=== PATIENT | female | born 1945 | race Caucasian/White ===

== ENCOUNTER → 2019-08-14 | Outpatient (CLI) | payer MEDICARE, OTHER ==
--- NOTE | 2019-08-14 17:36 | Diagnostic Imaging Report ---
INDICATION: Back pain, lifting injury. FINDINGS: There is very slight superior endplate stature loss and concavity at the L2 level. This appeared sclerotic and well marginated and is probably chronic but I have no priors. No convincing evidence for an acute fracture. 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 IMPRESSION: 1. Slight L2 superior endplate compression, likely chronic given the sclerosis but correlate with level of pain. If warranted, further evaluation with nonemergent MRI may be of benefit. 2. Degenerative changes to the endplates, discs, and facets noted with no listhesis. Dictated by: Dictated on workstation # [id number]
== END ==
LOC: RAD FS 13:49
PROVIDERS: ATTEND Chiropractor
DX: S39.92XA Unspecified injury of lower back, initial encounter (principal); M47.816 Spondylosis without myelopathy or radiculopathy, lumbar region; M51.36 Other intervertebral disc degeneration, lumbar region; X50.9XXA Other and unspecified overexertion or strenuous movements or postures, initial encounter
CPT/HCPCS: 72100

== ENCOUNTER → 2021-07-18 | Outpatient (CLI) | payer MEDICARE, OTHER | LOC: LAB FS 10:00 | PROVIDERS: ATTEND Emergency Medicine | DX: Z01.812 Encounter for preprocedural laboratory examination (principal); Z20.822 Contact with and (suspected) exposure to COVID-19 | CPT/HCPCS: 87636 ==

== ENCOUNTER 2022-06-18 13:24 | Observation (INO) | payer MEDICARE, OTHER ==
[~2022-06-18] VITALS: Ht 165.1 cm; Wt 68.3 kg
[2022-06-18 14:03] LABS: BASOPHILS % (AUTO) 1 % (0-10); EOSINOPHILS # (AUTO) 0.1 10^3/uL (0.0-0.3); EOSINOPHILS % (AUTO) 2 % (0-10); HEMATOCRIT 35 % (35-52); HEMOGLOBIN 11.8 g/dL (11.5-16.0); LYMPHOCYTES % (AUTO) 31 % (12-44); MEAN CORPUSCULAR HEMOGLOBIN 29 pg (25-34); MEAN CORPUSCULAR HGB CONC 34 g/dL (32-36); MEAN CORPUSCULAR VOLUME 86 fL (80-99); MEAN PLATELET VOLUME 9.9 fL (9.0-12.2); MONOCYTES # (AUTO) 0.5 10^3/uL (0.0-1.0); MONOCYTES % (AUTO) 8 % (0-12); NEUTROPHILS # (AUTO) 3.7 10^3/uL (1.8-7.8); NEUTROPHILS % (AUTO) 58 % (42-75); PLATELET COUNT 239 10^3/uL (130-400); WHITE BLOOD COUNT 6.3 10^3/uL (4.3-11.0)
--- NOTE | 2022-06-18 14:15 | Diagnostic Imaging Report ---
CHEST 1 VIEW AP/PA ONLY Indication: Dizziness Comparison: None available. Findings: No focal airspace disease in the visualized lungs. Please note that the posterior lower lobes are poorly evaluated by portable radiography. No pleural effusion or pneumothorax. Normal cardiomediastinal silhouette. Impression: 1. No acute cardiopulmonary process by portable radiography. Dictated by: Dictated on workstation # [id number]
--- NOTE | 2022-06-18 14:16 | Diagnostic Imaging Report ---
EXAMINATION: CT head without contrast. TECHNIQUE: Multiple contiguous axial images were obtained through the brain without the use of intravenous contrast. All CT scans use one or more of the following dose optimizing techniques: Automated exposure control, MA and/or KvP adjustment based on patient size and exam type or iterative reconstruction. HISTORY: Confusion. Weakness. Concern for acute ischemia. Expressive aphasia. COMPARISON: None available. FINDINGS: No large acute territorial ischemia, mass, or hemorrhage. No midline shift or mass effect. The ventricles, cortical sulci, and basilar cisterns are patent and unremarkable. The orbits are normal. Paranasal sinuses are normal. Mastoid air cells are clear. No soft tissue abnormality is seen. No osseous lesions or fractures are seen. IMPRESSION: 1. No large acute territorial ischemia, mass, or hemorrhage. Dictated by: Dictated on workstation # [id number]
[2022-06-18 14:19] LABS: PROTHROMBIN TIME PATIENT 13.6 SEC (12.2-14.7)
[2022-06-18 14:23] LABS: ALKALINE PHOSPHATASE 80 U/L (40-136); BILIRUBIN,TOTAL 0.3 MG/DL (0.1-1.0); BUN/CREATININE RATIO 20; CALCIUM 9.4 MG/DL (8.5-10.1); CARBON DIOXIDE 21 MMOL/L (21-32); CHLORIDE 98 MMOL/L (98-107); CREATININE SERUM 0.75 MG/DL (0.60-1.30); GFR ESTIMATED 81; GLUCOSE 103 MG/DL (70-105); POTASSIUM 4.2 MMOL/L (3.6-5.0); SODIUM 131 MMOL/L (135-145)
[2022-06-18 14:24] LABS: ALANINE AMINOTRANSFERASE 10 U/L (0-55); ALBUMIN 4.3 GM/DL (3.2-4.5)
[2022-06-18] MEDS ORDERED: CATHETER FLUSH 10 ML SYR IV PRN (14:45)
[2022-06-18] MEDS ORDERED: IOHEXOL 350 MG/ML 100 ML (OMNIPAQUE 350) VIAL IV ONE (14:45)
[2022-06-18] MEDS ORDERED: HOLD METFORMIN - RECEIVED CONTRAST 20 ML VIAL IV SCH (14:45)
[2022-06-18] MEDS ORDERED: NS 100 ML (IVPB) BAG IV ONE (14:45)
--- NOTE | 2022-06-18 14:50 | ED General ---
General Chief Complaint: Neuro-Stroke Like Symptoms Stated Complaint: DIZZINESS; NAUSEA Nursing Triage Note: Patient presents to the ED with c/o dizziness and nausea. States she was sitting at home when she suddenly felt like the room was tilting. Reports she became very nauseated at that time. Source of Information: Patient, EMS, Spouse History of Present Illness Date Seen by Provider: Jun 18, 2022 Time Seen by Provider: 13:37 Initial Comments 76-year-old female presenting by EMS from home. She states that suddenly at 1130 this morning she felt like the room suddenly tilted and she was dizzy. She became nauseated and had vomiting. She was feeling like she was having trouble thinking and trying to find her words. EMS was activated as they were concerned that she might have a stroke. She states that she is supposed to be taking a baby aspirin daily but has not routinely been taking it. She periodically forgets. She has recently had hip surgery in January and then had compression fractures of her spine after that so she has been doing physical therapy for her back and lower legs. She denies any recent head trauma or surgery since January. Timing/Duration: 1-3 Hours Severity: Severe Modifying Factors: worse with Movement Associated Systoms: No Chest Pain, No Cough, No Diaphoresis, No Fever/Chills, No Headaches, No Loss of Appetite, No Malaise; Nausea/Vomiting; No Rash, No Se izure, No Shortness of Air, No Syncope, No Weakness Allergies and Home Medications Allergies Coded Allergies: No Known Drug Allergies (Unverified , 06/18/22) Patient Home Medication List Home Medication List Reviewed: Yes Review of Systems Review of Systems Constitutional: No chills, No diaphoresis; dizziness; No fever EENTM: No ear discharge, No hearing loss, No ear pain, No blurred vision, No vision loss, No nose congestion, No throat pain Respiratory: No cough, No short of breath Cardiovascular: No chest pain, No edema, No palpitations Gastrointestinal: No abdominal pain, No constipation, No diarrhea; nausea, vomiting Genitourinary: No dysuria Musculoskeletal: no symptoms reported Skin: No rash Psychiatric/Neurological: See HPI, Anxiety; Denies Headache Hematologic/Lymphatic: Denies Blood Clots Past Ouvkmwx-Ygtmki-Uaydck Hx Patient Social History Tobacco Use?: No Substance use?: No Alcohol Use?: No Pt feels they are or have been: No Immunizations Up To Date First/Initial COVID19 Vaccinat: Yes Second COVID19 Vaccination Jose: Yes COVID19 Vaccine Brass Polisher: Michael Past Medical History Surgery/Hospitalization HX: HTN; Osteoporosis; Back surgery, hip surgery Surgeries: Yes Orthopedic Physical Exam Vital Signs Vital Signs - First Documented 06/18/22 13:27 Temp 36.4 Pulse 61 Resp 15 B/P (MAP) 156/60 (92) Pulse Ox 100 O2 Delivery Room Air Capillary Refill : Less Than 3 Seconds Height, Weight, BMI Height: '" Weight: lbs. oz. kg; 24.00 BMI Method: General Appearance: Anxious HEENT: PERRL/EOMI, TMs Normal, Normal ENT Inspection, Pharynx Normal, Moist Mucous Membranes Neck: Full Range of Motion, Normal Inspection, Non Tender, Supple; No Carotid Bruit Respiratory: Chest Non Tender, Lungs Clear, Normal Breath Sounds, No Accessory Muscle Use, No Respiratory Distress Cardiovascular: Regular Rate, Rhythm, No Murmur, Normal Peripheral Pulses Gastrointestinal: Normal Bowel Sounds, No Pulsatile Mass, Non Tender, Soft Rectal: Deferred Back: No CVA Tenderness Extremity: Normal Capillary Refill, Normal Inspection, No Calf Tenderness, No Pedal Edema Neurologic/Psychiatric: Alert, Oriented x3, No Motor/Sensory Deficits, correctional supervisor II- XII Norm as Tested, Other (Patient appears anxious and is tearful at times saying that she is upset that she is having to think so hard to try and speak) Skin: Normal Color, Warm/Dry Progress/Results/Core Measures Suspected Sepsis SIRS Temperature: Pulse: 61 Respiratory Rate: 15 Laboratory Tests 06/18/22 13:13: White Blood Count 6.3 Blood Pressure 156 /60 Mean: 92 Laboratory Tests 06/18/22 13:13: Creatinine 0.75, INR Comment 1.0, Platelet Count 239, Total Bilirubin 0.3 Results/Orders Lab Results Laboratory Tests Test 06/18/22 13:13 06/18/22 13:57 06/18/22 15:35 Range/Units White Blood Count 6.3 4.3-11.0 10^3/uL Red Blood Count 4.04 3.80-5.11 10^6/uL Hemoglobin 11.8 11.5-16.0 g/dL Hematocrit 35 35-52 % Mean Corpuscular Volume 86 80-99 fL Mean Corpuscular Hemoglobin 29 25-34 pg Mean Corpuscular Hemoglobin Concent 34 32-36 g/dL Red Cell Distribution Width 13.8 10.0-14.5 % Platelet Count 239 130-400 10^3/uL Mean Platelet Volume 9.9 9.0-12.2 fL Immature Granulocyte % (Auto) 0 % Neutrophils (%) (Auto) 58 42-75 % Lymphocytes (%) (Auto) 31 12-44 % Monocytes (%) (Auto) 8 0-12 % Eosinophils (%) (Auto) 2 0-10 % Basophils (%) (Auto) 1 0-10 % Neutrophils # (Auto) 3.7 1.8-7.8 10^3/uL Lymphocytes # (Auto) 2.0 1.0-4.0 10^3/uL Monocytes # (Auto) 0.5 0.0-1.0 10^3/uL Eosinophils # (Auto) 0.1 0.0-0.3 10^3/uL Basophils # (Auto) 0.0 0.0-0.1 10^3/uL Immature Granulocyte # (Auto) 0.0 0.0-0.1 10^3/uL Prothrombin Time 13.6 12.2-14.7 SEC INR Comment 1.0 0.8-1.4 Activated Partial Thromboplast Time 30 24-35 SEC Sodium Level 131 L 135-145 MMOL/L Potassium Level 4.2 3.6-5.0 MMOL/L Chloride Level 98 98-107 MMOL/L Carbon Dioxide Level 21 21-32 MMOL/L Anion Gap 12 5-14 MMOL/L Blood Urea Nitrogen 15 7-18 MG/DL Creatinine 0.75 0.60-1.30 MG/DL Estimat Glomerular Filtration Rate 81 BUN/Creatinine Ratio 20 Glucose Level 103 70-105 MG/DL Calcium Level 9.4 8.5-10.1 MG/DL Corrected Calcium 9.2 8.5-10.1 MG/DL Magnesium Level 1.7 1.6-2.4 MG/DL Total Bilirubin 0.3 0.1-1.0 MG/DL Aspartate Amino Transf (AST/SGOT) 19 5-34 U/L Alanine Aminotransferase (ALT/SGPT) 10 0-55 U/L Alkaline Phosphatase 80 40-136 U/L Troponin I < 0.30 <0.30 NG/ML Total Protein 7.0 6.4-8.2 GM/DL Albumin 4.3 3.2-4.5 GM/DL Influenza Type A (RT-PCR) Not Detected Not Detecte Influenza Type B (RT-PCR) Not Detected Not Detecte SARS-CoV-2 RNA (RT-PCR) Not Detected Not Detecte Urine Color YELLOW Urine Clarity CLEAR Urine pH 6.0 5-9 Urine Specific [place] <=1.005 1.016-1.022 Urine Protein NEGATIVE NEGATIVE Urine Glucose (UA) NEGATIVE NEGATIVE Urine Ketones TRACE H NEGATIVE Urine Nitrite NEGATIVE NEGATIVE Urine Bilirubin NEGATIVE NEGATIVE Urine Urobilinogen 0.2 < = 1.0 MG/DL Urine Leukocyte Esterase NEGATIVE NEGATIVE Urine RBC (Auto) NEGATIVE NEGATIVE Urine RBC NONE /HPF Urine WBC RARE /HPF Urine Squamous Epithelial Cells 0-2 /HPF Urine Crystals NONE /LPF Urine Bacteria TRACE /HPF Urine Casts PRESENT /LPF Urine Hyaline Casts 0-2 H /LPF Urine Mucus SMALL H /LPF Urine Culture Indicated NO My Orders Orders - FLOR DIAZ MD Cbc With Automated Diff (06/18/22 13:53) Protime With Inr (06/18/22 13:53) Partial Thromboplastin Time (06/18/22 13:53) Comprehensive Metabolic Panel (06/18/22 13:53) Troponin I Fs (06/18/22 13:53) Ua Culture If Indicated (06/18/22 13:53) Chest 1 View Ap/Pa Only (06/18/22 13:53) Ekg Tracing (06/18/22 13:53) Accucheck Stat ONCE (06/18/22 13:53) Ed Iv/Invasive Line Start (06/18/22 13:53) Vital Signs Stroke Patient Q15M (06/18/22 13:53) Ct Head Wo-R/O Stroke (06/18/22 13:53) O2 (06/18/22 13:53) Intake & Output 06,14,22 (06/18/22 13:53) Monitor-Rhythm Ecg Trace Only (06/18/22 13:53) Dysphagia Screening Tool Q10MX1 (06/18/22 13:53) Magnesium (06/18/22 13:55) Covid 19 Inhouse Test (06/18/22 13:55) Influenza A And B By Pcr (06/18/22 13:55) Isolation Central Supply Req (06/18/22 13:55) Ct Angio Head/Neck (06/18/22 14:28) Iohexol Injection (Omnipaque 350 Mg/Ml 1 (06/18/22 14:45) Received Contrast (Hold Metformin- Contr (06/18/22 14:45) Sodium Chloride Flush (Catheter Flush Sy (06/18/22 14:45) Ns (Ivpb) (Sodium Chloride 0.9% Ivpb Bag (06/18/22 14:45) Ed Admission (Communication) (06/18/22 16:19) Aspirin Chewable Tablet (Baby Aspirin Ch (06/18/22 16:32) Clopidogrel Tablet (Plavix Tablet) (06/18/22 16:32) Medications Given in ED Current Medications Medications Dose Ordered Sig/Nafisa Route Start Time Stop Time Status Last Admin Dose Admin Iohexol 75 ml ONCE ONCE IV 06/18/22 14:45 06/18/22 14:46 DC 06/18/22 14:48 75 ML Sodium Chloride 10 ml NEEDED PRN IV 06/18/22 14:45 06/18/22 14:48 10 ML Sodium Chloride 100 ml ONCE ONCE IV 06/18/22 14:45 06/18/22 14:46 DC 06/18/22 14:48 80 ML Vital Signs/I&O 06/18/22 06/18/22 13:27 17:06 Temp 36.4 36.4 Pulse 61 67 Resp 15 16 B/P (MAP) 156/60 (92) 148/63 Pulse Ox 100 99 O2 Delivery Room Air Room Air Capillary Refill : Less Than 3 Seconds Blood Pressure Mean: 92 Progress Note #1: Progress Note Perform NIH scale on my initial exam of the patient. She scored 8 on the NIH stroke scale however 6 of these points were more due to general weakness they were not localizing. She had drift in bilateral arms which gave her 1 off each side and she had resistance to gravity in bilateral lower extremities due to back pain with trying to lift her legs. This gave her 2 off on each side. She had 1 off for expressive aphasia and 1 off for slight dysarthria. Sent for CT head without contrast as well as obtain labs, ECG and urine. Progress Note #2: Time: 14:28 Progress Note After returning from CT scan she did report that her dizziness was better but was still having trouble thinking and trying to find words. CT angiogram was ordered as her creatinine was okay and the CT head did not show acute intracranial hemorrhage or process. Progress Note #3: Time: 15:[address] angiogram of head and neck did not show any bleeding or large vessel occlusion. Call placed to Neurology to speak to the stroke neurologist for consult. They will call back once the neurologist is on the line. 1538 d/w Dr. Catie Chen, houseperson neurologist for stroke at [facility]. Reviewed results and findings of the patient. Dr. Chne recommended offering tPA if the patient was having debilitating aphasia and was not improving. If the patient did not want tPA or she was improving and not qualifying for tPA then at least admit for stroke risk stratification work up with MRI, Echocardiogram, Telemetry, Lipids, HgbA1c. D/w patient and she was speaking more clearly and dizziness improved so did not qualify for tPA. Will admit locally for testing and check with Dr. Bobby, houseperson provider for Dr. Triana. On recommendation of Dr. Chen will start on aspirin and plavix. 1618 d/w Dr. Bobby and she accepted pt for [facility] to have monitoring and get testing. She will place queued orders for the patient. By time patient was being admitted her NIHSS was improved as she was not having the dysarthria and the expressive aphasia was improved as well. ECG Initial ECG Impression Date: Jun 18, 2022 Initial ECG Impression Time: 13:45 Initial ECG Rate: 59 Initial ECG Rhythm: Normal Sinus Initial ECG Comparisson: No Previous ECG Available Comment Normal sinus rhythm with a heart rate of [address] interval [address] elevation. There is minimal ST depression. QT interval 439 ms with a QTc interval 437 ms. There is no prior tracing available for comparison. Diagnostic Imaging Diagonstic Imaging: Xray Plain Films/CT/US/NM/MRI: chest Comments [facility] [place] [place] NAME: IGNACIA HORTON MED REC#: [id number] PT STATUS: REG ER : 1945 PHYSICIAN: FLOR DIAZ MD ADMIT DATE: 06/18/22/ER FS Signed Date of Exam:06/18/22 CHEST 1 VIEW AP/PA ONLY CHEST 1 VIEW AP/PA ONLY Indication: Dizziness Comparison: None available. Findings: No focal airspace disease in the visualized lungs. Please note that the posterior lower lobes are poorly evaluated by portable radiography. No pleural effusion or pneumothorax. Normal cardiomediastinal silhouette. Impression: 1. No acute cardiopulmonary process by portable radiography. Dictated by: Dictated on workstation # [id number] Dict: 06/18/221412 Trans: 06/18/221412 [facility] Interpreted by: CORTNEY LAGUNAS MD Electronically signed by: CORTNEY LAGUNAS MD 06/18/221412 Diagonstic Imaging: CT Plain Films/CT/US/NM/MRI: head Comments [facility] [place] [place] NAME: IGNACIA HORTON [facility] REC#: [id number] PT STATUS: REG ER : 1945 PHYSICIAN: FLOR DIAZ MD ADMIT DATE: 06/18/22/ER FS Signed Date of Exam:06/18/22 CT HEAD WO-R/O STROKE EXAMINATION: CT head without contrast. TECHNIQUE: Multiple contiguous axial images were obtained through the brain without the use of intravenous contrast. All CT scans use one or more of the following dose optimizing techniques: Automated exposure control, MA and/or KvP adjustment based on patient size and exam type or iterative reconstruction. HISTORY: Confusion. Weakness. Concern for acute ischemia. Expressive aphasia. COMPARISON: None available. FINDINGS: No large acute territorial ischemia, mass, or hemorrhage. No midline shift or mass effect. The ventricles, cortical sulci, and basilar cisterns are patent and unremarkable. The orbits are normal. Paranasal sinuses are normal. Mastoid air cells are clear. No soft tissue abnormality is seen. No osseous lesions or fractures are seen. IMPRESSION: 1. No large acute territorial ischemia, mass, or hemorrhage. Dictated by: Dictated on workstation # [id number] Dict: 06/18/221412 Trans: 06/18/22 142 Interpreted by: FARHAD LYNCH DO Electronically signed by: FARHAD LYNCH DO 06/18/22 1423 Reviewed: Reviewed by Me Diagonstic Imaging: CT (angiogram) Plain Films/CT/US/NM/MRI: head (and neck) Comments [facility] [place] NAME: IGNACIA HORTON [facility] REC#: [id number] PT STATUS: REG ER : 1945 PHYSICIAN: FLOR DIAZ MD ADMIT DATE: 06/18/22/ER FS Signed Date of Exam:06/18/22 CT ANGIO HEAD/NECK PROCEDURE: CT angiography of the head and CT angiography of the neck with and without contrast. TECHNIQUE: Contiguous noncontrast images were obtained from the skull base through the vertex. After intravenous contrast administration, helical CT angiography of the neck was performed. Source data was reformatted into 3D MIP projections. Delayed postcontrast acquisition was also obtained. Auto Exposure Controls were utilized during the CT exam to meet ALARA standards for radiation dose reduction. INDICATION: Dizziness, expressive aphasia. COMPARISON: Noncontrast CT head from earlier same day. FINDINGS: Aortic arch is normal without dissection. The great vessels of the aortic arch are widely patent centrally. The bilateral common carotid arteries are normal. There is no stenosis of the proximal internal carotid arteries per NASCET criteria. The cervical divisions of the internal carotid arteries are patent without features of dissection or stenosis. Vertebral artery origins are patent. Vertebral arteries are codominant and patent throughout the neck. The T4 division of the left vertebral artery has bifurcated appearance. Airway is widely patent. No prevertebral soft tissue fluid. Thyroid is normal. Lung apices are clear. No cervical lymphadenopathy. The bilateral distal internal carotid arteries are patent without dissection or terminal aneurysm. The M1 and M2 divisions of the middle cerebral arteries are patent. The basilar artery is patent without terminal aneurysm. Posterior cerebral arteries are patent centrally. Anterior cerebral arteries are also patent. No anterior communicating artery aneurysm. The visualized portions of the dural venous sinuses are patent. The sagittal sinus is not included in the [id number]. IMPRESSION: 1. No intracranial large vessel occlusion or saccular aneurysm. 2. No high-grade stenosis or occlusion within the major neck arteries. 3. Visualized dural venous sinuses are patent. Dictated by: Dictated on workstation # [id number] Dict: 06/18/22 1503 Trans: 06/18/22 1525 [id number] Interpreted by: CORTNEY LAGUNAS MD Electronically signed by: CORTNEY LAGUNAS MD 06/18/22 1525 Departure Communication (Admissions) Time/Spoke to Admitting Phy: 16:18 d/w Dr. Bobby about admit for stroke/tia work up as recommended by Dr. Chen, stroke neurologist at [facility]. She recommends updating Cholesterol labs, HGBA1c and get MRI and Echocardiogram as well as monitor on telemetry Impression Primary Impression: Expressive aphasia Additional Impression: Dizziness Disposition: 30 STILL A PATIENT Condition: Stable Admissions Decision to Admit Reason: Admit from ER (General) Decision to Admit/Date: Jun 18, 2022 Time/Decision to Admit Time: 16:18 Departure-Patient Inst. Referrals: ARIA TRIANA MD (PCP) Primary Care Physician NIH Stroke Scale NIH Stroke Scale NIH : Select: Initial Level of Consciousness: 0=Alert Level of Consciousness-Questio: 0=Answers both month/age LOC Commands: 0=Performs both tasks Gaze: 0=Normal Visual Ramirez: 0=No visual loss Facial Movement (Facial Paresi: 0=Normal symmetrical mnt Motor Function-Arms Right: 1=Drift Motor Function-Arms Left: 1=Drift Motor Function-Legs Right: 2=Some effort/gravity (due to back pain from compression fracture January 30) Motor Function-Legs Left: 2=Some effort/gravity (due to back pain from compression fracture January 30) Limb Ataxia: 0=Absent Sensory: 0=Normal:no loss Best Language: 1=Mild to moderat aphasia Dysarthria: 1=Mild to moderate loss Extinction & Inattention: 0=No abnormality NIH Stroke Scale Score: 8 FLOR DIAZ MD Jun 18, 2022 14:50
--- NOTE | 2022-06-18 15:23 | Diagnostic Imaging Report ---
PROCEDURE: CT angiography of the head and CT angiography of the neck with and without contrast. TECHNIQUE: Contiguous noncontrast images were obtained from the skull base through the vertex. After intravenous contrast administration, helical CT angiography of the neck was performed. Source data was reformatted into 3D MIP projections. Delayed postcontrast acquisition was also obtained. Auto Exposure Controls were utilized during the CT exam to meet ALARA standards for radiation dose reduction. INDICATION: Dizziness, expressive aphasia. COMPARISON: Noncontrast CT head from earlier same day. FINDINGS: Aortic arch is normal without dissection. The great vessels of the aortic arch are widely patent centrally. The bilateral common carotid arteries are normal. There is no stenosis of the proximal internal carotid arteries per NASCET criteria. The cervical divisions of the internal carotid arteries are patent without features of dissection or stenosis. Vertebral artery origins are patent. Vertebral arteries are codominant and patent throughout the neck. The T4 division of the left vertebral artery has bifurcated appearance. Airway is widely patent. No prevertebral soft tissue fluid. Thyroid is normal. Lung apices are clear. No cervical lymphadenopathy. The bilateral distal internal carotid arteries are patent without dissection or terminal aneurysm. The M1 and M2 divisions of the middle cerebral arteries are patent. The basilar artery is patent without terminal aneurysm. Posterior cerebral arteries are patent centrally. Anterior cerebral arteries are also patent. No anterior communicating artery aneurysm. The visualized portions of the dural venous sinuses are patent. The sagittal sinus is not included in the [id number]. IMPRESSION: 1. No intracranial large vessel occlusion or saccular aneurysm. 2. No high-grade stenosis or occlusion within the major neck arteries. 3. Visualized dural venous sinuses are patent. Dictated by: Dictated on workstation # [id number]
[2022-06-18 16:02] LABS: BILIRUBIN,URINE NEGATIVE (NEGATIVE); CLARITY,URINE CLEAR; COLOR,URINE YELLOW; GLUCOSE, URINE (UA) NEGATIVE (NEGATIVE); KETONES,URINE TRACE (NEGATIVE); LEUKOCYTE ESTERASE ,URINE NEGATIVE (NEGATIVE); NITRITE,URINE NEGATIVE (NEGATIVE); PROTEIN,URINE NEGATIVE (NEGATIVE)
[2022-06-18 16:11] LABS: BACTERIA,URINE TRACE /HPF; HYALINE CASTS, URINE 0-2 /LPF; SQUAMOUS EPITHELIAL CELL,UR 0-2 /HPF; WBC,URINE RARE /HPF
[2022-06-18] MEDS ORDERED: CLOPIDOGREL 75 MG (PLAVIX) TABLET PO STA (16:32)
[2022-06-18] MEDS ORDERED: ASPIRIN 81 MG CHEW (CHILDREN'S ASA) PO STA (16:32)
[2022-06-18] MEDS ORDERED: diphenhydrAMINE 25 MG TAB (BENADRYL) PO PRN (18:15)
[2022-06-18] MEDS ORDERED: ONDANSETRON 4 MG (ZOFRAN) ORAL DISSOLVE TAB PO PRN (18:15)
[2022-06-18] MEDS ORDERED: ACETAMINOPHEN 325 MG TABLET PO PRN ×2 (18:15)
[2022-06-18] MEDS ORDERED: polyethylene glycoL POWDER 17 GM (MIRALAX) PACK PO PRN (18:15)
[2022-06-18] MEDS ORDERED: morphine INJ 4 MG/ML 1 ML (VIAL/SYRINGE) IV PRN (18:15)
[2022-06-18] MEDS ORDERED: BISACODYL 10 MG SUPP (DULCOLAX) PR PRN ×2 (18:15)
[2022-06-18] MEDS ORDERED: MELATONIN 3 MG TABLET PO PRN (18:15)
[2022-06-18] MEDS ORDERED: diphenhydrAMINE 50 MG/ML INJ (BENADRYL) IVP PRN (18:15)
[2022-06-18] MEDS ORDERED: ANTACID SUSP 30 ML UDC (MYLANTA) PO PRN (18:15)
[2022-06-18] MEDS ORDERED: ONDANSETRON 4 MG/2 ML (SDV) Z0FRAN IV PRN (18:15)
[2022-06-18 18:25] VITALS: BP 156/60
[2022-06-18] MEDS ORDERED: RT-ALBUTEROL SULF 2.5 MG/3 ML PRE-MIX VIAL INH PRN (18:30)
[2022-06-18 18:45] LABS: TRIGLYCERIDES 71 MG/DL (<150); VLDL CHOLESTEROL 14 MG/DL (5-40)
[2022-06-18 18:50] LABS: CHOLESTEROL 266 MG/DL (< 200)
[2022-06-18 18:51] LABS: HDL CHOLESTEROL 84 MG/DL (40-60)
[2022-06-18] MEDS: ENOXAPARIN 40 MG/0.4 ML (LOVENOX) SYR SC SCH (18:51)
[2022-06-18 19:31] VITALS: BP 144/67
[2022-06-18] MEDS: DOCUSATE SODIUM 100 MG (COLACE) CAP PO SCH (22:36)
[2022-06-19] VITALS (7 sets, daily range): BP systolic 108–151; BP diastolic 53–82
[2022-06-19 06:10] LABS: ALBUMIN 3.9 GM/DL (3.2-4.5)
[2022-06-19 06:11] LABS: POTASSIUM 4.8 MMOL/L (3.6-5.0)
[2022-06-19 06:12] LABS: CALCIUM 9.9 MG/DL (8.5-10.1)
[2022-06-19 06:13] LABS: TOTAL PROTEIN 6.8 GM/DL (6.4-8.2)
[2022-06-19 06:15] LABS: BASOPHILS % (AUTO) 1 % (0-10); BILIRUBIN,TOTAL 0.6 MG/DL (0.1-1.0); EOSINOPHILS # (AUTO) 0.2 10^3/uL (0.0-0.3); EOSINOPHILS % (AUTO) 3 % (0-10); HEMATOCRIT 36 % (35-52); HEMOGLOBIN 12.2 g/dL (11.5-16.0); LYMPHOCYTES # (AUTO) 1.6 10^3/uL (1.0-4.0); LYMPHOCYTES % (AUTO) 34 % (12-44); MEAN CORPUSCULAR HEMOGLOBIN 29 pg (25-34); MEAN CORPUSCULAR HGB CONC 34 g/dL (32-36); MEAN CORPUSCULAR VOLUME 86 fL (80-99); MEAN PLATELET VOLUME 9.8 fL (9.0-12.2); MONOCYTES # (AUTO) 0.5 10^3/uL (0.0-1.0); MONOCYTES % (AUTO) 10 % (0-12); NEUTROPHILS # (AUTO) 2.5 10^3/uL (1.8-7.8); NEUTROPHILS % (AUTO) 53 % (42-75); PLATELET COUNT 243 10^3/uL (130-400); WHITE BLOOD COUNT 4.8 10^3/uL (4.3-11.0)
[2022-06-19 06:17] LABS: CREATININE SERUM 0.81 MG/DL (0.60-1.30)
--- NOTE | 2022-06-19 08:31 | Diagnostic Imaging Report ---
PROCEDURE: US carotid duplex, bilateral. INDICATION: 68-year-old female, dizziness, expressive aphasia. History of hypertension. TECHNIQUE: Multiple real-time grayscale images were obtained over the carotid arteries in various projections bilaterally. Additional spectral analysis and color Doppler and Duplex images were also obtained. CORRELATION: None FINDINGS: Color images demonstrate mild scattered atherosclerotic plaque to be present. Right carotid circulation: The right common carotid artery is normal in course and caliber. The right internal carotid artery is patent. No hemodynamically significant stenosis is present at this time. Right external carotid artery is patent. Left carotid circulation: The left common carotid artery is normal in course and caliber. The left internal carotid artery is patent. No hemodynamically significant stenosis is present at this time. Left external carotid artery is patent. Antegrade flow in the bilateral vertebral arteries. IMPRESSION: 1. No sonographic evidence to suggest a hemodynamically significant stenosis of the internal carotid arteries at this time. Parameters based on the consensus panel Beaulieu-Scale and Doppler ultrasound criteria published September 2003, Radiology, Volume 229. DOPPLER (peak systolic velocity M/S Right Left CCA 0.96 0.85 ICA Proximal 0.67 0.99 ICA Mid 0.79 0.76 ICA Distal 1.05 0.74 RATIO 1.10 1.17 ECA 0.92 0.71 VERT 0.69 0.64 IMPRESSION: 1. No sonographic evidence to suggest a hemodynamically significant stenosis of the internal carotid arteries at this time. Parameters based on the consensus panel Beaulieu-Scale and Doppler ultrasound criteria published September 2003, Radiology, Volume 229. Dictated by: Dictated on workstation # [id number]
[2022-06-19] MEDS: ASPIRIN 325 MG (5 GR) TABLET PO SCH (09:05)
[2022-06-19] MEDS: DOCUSATE SODIUM 100 MG (COLACE) CAP PO SCH ×2 (09:05→20:14)
[2022-06-19] MEDS: CLOPIDOGREL 75 MG (PLAVIX) TABLET PO SCH (09:05)
--- NOTE | 2022-06-19 09:58 | Speech Therapy Progress Note ---
Therapy Progress Note Speech pathology received the consultation and reviewed the patient's chart. The clinician attempted the evaluation at 0945. Per patient, she is not experiencing any speech, language, or cognitive difficulties at this time and states she has returned to her baseline function. Additionally, the patient denied any difficulties with her oropharyngeal swallow. The patient was encouraged to contact the RN if speech, language, cognitive, or swallowing difficulties retur n. At this time, speech pathology will sign off. KARTHIK GRAF Jun 19, 2022 09:58
--- NOTE | 2022-06-19 10:19 | Physical Therapy Evaluation ---
PT Evaluation-General Medical Diagnosis Admission Date Jun 18, 2022 at 17:57 Medical Diagnosis: dizziness/expressive aphasia Onset Date: Jun 18, 2022 Therapy Diagnosis Therapy Diagnosis: debility/weakness Precautions Precautions/Isolations: Fall Prevention, Standard Precautions Referral Physician: Diamante Reason for Referral: Evaluation/Treatment Medical History Pertinent Medical History: HTN Additional Medical History back and left hip surgery Reviewed History: Yes Social History Home: Single Level Current Living Status: Spouse Entry Into Home: Stairs With Railing PT Steps Into Home: 6 Prior Prior Level of Function SCALE: Activities may be completed with or without assistive devices. 7-Sneajbklue-octjpdz completes the activity by him/herself with no assistance from a helper. 5-Set-up or Clean-up Assistance-helper sets up or cleans up; patient completes activity. [place] assists only prior to or following the activity. 4-Supervision or Touching Assistance-helper provides verbal cues and/or touching/steadying and/or contact guard assistance as patient completes activity. Assistance may be provided throughout the activity or intermittently. 3-Partial/Moderate Assistance-helper does LESS THAN HALF the effort. [place] lifts, holds or supports trunk or limbs, but provides less than half the effort. 2-Substantial/Maximal Assistance-helper does MORE THAN HALF the effort. [place] lifts or holds trunk or limbs and provides more than half the effort. 6-Qupasuxth-bzrsfg does ALL the effort. Patient does none of the effort to complete the activity. Or, the assistance of 2 or more helpers is required for the patient to complete the activity. If activity was not attempted, code reason: 7-Patient Refused. 9-Not Applicable-not attempted and the patient did not perform the activity before the current illness, exacerbation or injury. 10-Not Attempted due to Environmental Limitations-(lack of equipment, weather restraints, etc.). 88-Not Attempted due to Medical Conditions or Safety Concerns. Bed Mobility: 6 Transfers (B,C,W/C): 6 Gait: 6 Stairs: 6 Indoor Mobility (Ambulation): Independent Stairs: Independent Prior Devices Use: None PT Evaluation-Current Subjective Patient agrees to PT. FAmily present. Objective Patient Orientation: Normal For Age ROM/Strength ROM Lower Extremities bilateral LE WFL Strength Lower Extremities 4/5 grossly bilateral LE Integumentary/Posture Bowel Incontinence: No Bladder Incontinence: No Posture WFL Neuromuscular (Tone, Coordination, Reflexes) grossly intact Sensory Vision: Functional Hearing: Functional Sensation Right Lower Extremit: Intact Sensation Left Lower Extremity: Intact Transfers Roll Left to Right (QC): 6 Lying to Sitting/Side of Bed(Q: 6 Sit to Stand (QC): 6 Gait Mode of Locomotion: Walk Anticipated Mode of Locomotion: Walk Walk 10 feet (QC): 6 Walk 50 ft with 2 Turns(QC): 6 Walk 150 ft (QC): 6 Distance: 200' x 2 Gait Assistive Device: None Comments/Gait Description safe and functional with no deviation Balance Sitting Static: Normal Sitting Dynamic: Normal Standing Static: Normal Standing Dynamic: Normal Assessment/Needs 76 y.o. female, is currently at independent [facility] with all gross motor skills and does not require skilled PT intervention. Rehab Potential: Fair PT Plan Treatment/Plan Treatment Plan: Discontinue PT, goals met Treatment Duration: Jun 19, 2022 Frequency: 1 time per week Estimated Hrs Per Day: .25 hour per day Patient and/or Family Agrees t: Yes Discharge Recommendations Therapy Discharge Recommendati: Home & Family Time/GCodes Time In: 913 Time Out: 924 Total Billed Treatment Time: 111 Total Billed Treatment 1 visit EVModC 11 min JOE ASHRAF PT Jun 19, 2022 10:19
[2022-06-19] MEDS ORDERED: ASPI-1238 PO (11:04)
[2022-06-19] MEDS ORDERED: ATOR40TA70 PO (11:04)
[2022-06-19] MEDS ORDERED: METO50TA7 PO (11:04)
--- NOTE | 2022-06-19 11:44 | Occ Therapy Progress Note ---
Therapy Progress Note OT orders received and chart reviewed prior to seeing pt. She politely declined skilled OT services at this time as she believes she is at her PLOF and has no concerns about ADLs upon d/c. Pt up independently in room, able to toilet herself without problems. Pt's family reports no concerns as well. Pt told to have nursing staff notify OT if any concerns arise, pt verbalized understanding. D/c from OT at this time as pt is independent and at PLOF. 1, visit @1017 LETY ARZATE OT Jun 19, 2022 11:44
--- NOTE | 2022-06-19 12:26 | History & Physical-Hospitalist ---
DAVIDSON JAMES 06/19/22 1226: History of Present Illness HPI/Chief Complaint CC: Possible TIA HPI: 76yo F presented to the ED due to dizziness and expressive aphasia. The aphasia was present after the patient reported she felt like something had hit her and that the couch she was sitting on had flipped upside down. She denied any head trauma. On exam the morning of 06/19 there was no expressive aphasia present, and the patient claimed the aphasia was only present immediately following when the incident occurred. She denied any unilateral weakness at the time of the event. The patients denies any pain other than IV site. She is accompanied by family at bedside. Source: patient Exam Limitations: no limitations Date Seen 06/19/22 Time Seen by a Provider: 09:30 Attending Physician Paul Triana MD PCP Admitting Physician: Miladis Dozier DO Attending Physician: Miladis Dozier DO Referring Physician Date of Admission Jun 18, 2022 at 17:57 Home Medications & Allergies Home Medications Reviewed patient Home Medication Reconciliation performed by pharmacy medication reconciliations exercise equipment repair technician and/or nursing. Patients Allergies have been reviewed. Allergies Allergies Coded Allergies No Known Drug Allergies (Unverified06/18/22) Past Mcomrkl-Rpponz-Kyrbde Hx Patient Social History Tobacco Use?: No Smoking Status: Never a Smoker Smokeless Tobacco Frequency: Never a User Use of E-Cig and/or Vaping dev: No Substance use?: Yes Substance type: Caffeine Substance frequency: Daily Alcohol Use?: No Pt feels they are or have been: No Immunizations Up To Date First/Initial COVID19 Vaccinat: Yes Second COVID19 Vaccination Jose: Yes Tetanus Booster (TDap): More Than 5 Years Hepatitis A: No Hepatitis B: No Seasonal Allergies Seasonal Allergies: No Current Status status: No status: No Advance Directives: No Communicates: Verbally Primary Language: Burundian Preferred Spoken Language: Burundian Is interpretation needed?: No Implanted or Applied Medical D: None Past Medical History Surgeries: Eye Surgery, Hysterectomy, Orthopedic 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 oz. kg; 25.05 BMI Method: General Appearance: No Apparent Distress Respiratory: Chest Non Tender, Lungs Clear, Normal Breath Sounds, No Accessory Muscle Use, No Respiratory Distress Cardiovascular: No Edema, No JVD Gastrointestinal: Non Tender, Soft Neurologic/Psychiatric: Alert, Oriented x3 Results Results/Procedures Labs Laboratory Tests 06/18/22 13:13 06/19/22 05:40 Patient resulted labs reviewed. Assessment/Plan Assessment and Plan Possible TIA Await results and interpretation of MRI Continue dual anti-platelet therapy Continue lovenox Cardiac Consult Dr. Sigala Await echo results Start telemetry Loop recorder High cholesterol Begin atorvastatin therapy 80mg HS PO MILADIS DOZIER DO 06/20/22 0536: History of Present Illness HPI/Chief Complaint Chief complaint: Expressive aphasia History of present illness: This is a 76-year-old female who presented from [facility] with expressive aphasia. It is now resolved. at bedside with rest of family. Telemetry will be maintained and MRI was just done but results pending. PT and OT will be evaluating patient. Will review home medication. Source: patient Exam Limitations: no limitations Past Xcslwtw-Zumroh-Vdekob Hx Patient Social History Marrital Status: Employed/Student: retired Smoking Status: Never a Smoker Past Medical History High Cholesterol Arthritis Review of Systems Constitutional: see HPI, malaise, weakness Psychiatric/Neurological: Weakness Physical Exam Physical Exam General Appearance: No Apparent Distress Eyes: Right Eye Normal Inspection, Right Eye PERRL HEENT: PERRL/EOMI, TMs Normal, Normal ENT Inspection, Pharynx Normal, Moist Mucous Membranes Neck: Full Range of Motion, Normal Inspection, Non Tender Respiratory: Chest Non Tender, Lungs Clear, Normal Breath Sounds, No Accessory Muscle Use, No Respiratory Distress Cardiovascular: Regular Rate, Rhythm, No Edema, No Gallop, No JVD, No Murmur, Normal Peripheral Pulses Gastrointestinal: Normal Bowel Sounds, No Organomegaly, No Pulsatile Mass, Non Tender, Soft Back: Normal Inspection, No CVA Tenderness, No Vertebral Tenderness Extremity: Normal Capillary Refill, Normal Inspection, Normal Range of Motion, Non Tender, No Calf Tenderness, No Pedal Edema Neurologic/Psychiatric: Alert, Oriented x3, No Motor/Sensory Deficits, Normal Mood/Affect Skin: Normal Color, Warm/Dry Lymphatic: No Adenopathy Assessment/Plan Admission Diagnosis Assessment: Expressive aphasia now resolved Hypertension Hyperlipidemia Plan: Increase statin Aspirin and Plavix Await MRI results Consult cardiology Telemetry Admission Status: Observation Diagnosis/Problems Diagnosis/Problems (1) Expressive aphasia Status: Acute (2) Dizziness Status: Acute Supervisory-Addendum Brief Verification & Attestation Participated in pt care: history, MDM, physical Personally performed: exam, history, MDM, supervision of care Care discussed with: Medical Student Procedures: n/a Results interpretation: Verified all documentation Verification and Attestation of Medical Student E/M Service A medical student performed and documented this service in my presence. I reviewed and verified all information documented by the medical student and made modifications to such information, when appropriate. I personally performed the physical exam and medical decision making. Miladis Dozier, Jun 20, 2022,05:36 DAVIDSON JAMES Jun 19, 2022 12:26 MILADIS DOZIER DO Jun 20, 2022 05:36
--- NOTE | 2022-06-19 12:54 | Diagnostic Imaging Report ---
PROCEDURE: MR imaging of the brain without contrast. TECHNIQUE: Multiplanar, multisequence MR imaging of the brain was performed without contrast. DATE: June 19, 2022. COMPARISON: CT angiography head and neck June 18, 2022. CT head without contrast June 18, 2022. HISTORY: 76-year-old female, confusion and altered mental status. Concern for stroke. FINDINGS: There is no restricted diffusion. There are no areas of abnormal intracranial susceptibility. The ventricles and CSF spaces are normal in size and configuration for patient age. There is no abnormal extra axial fluid collection. There is no acute intracranial hemorrhage. There is no mass effect or midline shift. There are foci of T2 and FLAIR hyperintense signal in the periventricular and subcortical white matter which are nonspecific but most likely reflect mild findings of chronic small vessel ischemic disease. There is preservation of normal intracranial flow voids. The visualized portions of the paranasal sinuses are well-aerated. There is partial opacification in the inferior aspect of the right mastoid air cells. IMPRESSION: 1. No acute infarct or other acute intracranial abnormality. 2. Mild probable findings of chronic small vessel ischemic disease. Dictated by: Dictated on workstation # [id number]
[2022-06-19] MEDS: ENOXAPARIN 40 MG/0.4 ML (LOVENOX) SYR SC SCH (17:19)
--- NOTE | 2022-06-19 17:21 | Consultation-Cardiology ---
HPI-Cardiology Cardiology Consultation: Date of Consultation 06/19/22 Date of Admission 06/18/22 Attending Physician Paul Triana MD Admitting Physician Admitting Physician: Miladis Bobby DO Attending Physician: Miladis Bobby DO Consulting Physician BECKA SANTANA JR, MD HPI: Time Seen by a Provider: 17:15 Chief Complaint: REASON FOR CONSULTATION: Transient ischemic attack. I had the pleasure of seeing Shanique on the medical/surgical unit at [facility] in [place], [place] today. She tells me that she had suffered a myocardial infarction around 2016 and underwent a cardiac catheterization at that time but was told that she did not have any significant obstructive coronary disease and did not require any revascularization. She was started on aspirin, beta-bob and statin medication at that time. She still follows dnaielle joseph a telegraphic typewriter installer from [facility] in [place], [place] who she sees in [place] where she lives. She last saw him around October. She was in her usual state of health until yesterday when she was sitting on her sofa and suddenly felt as though somebody had hit her in the back of the head and she felt like the self I had tipped over and the house was on its side. She was also having trouble speaking. Her noticed that something was not right and he called 911. The patient remembers the ambulance arriving but was having great difficulty saying her name and date of . She was brought to [place] the emergency room. After about 2 hours from the onset of her symptoms, and the dizziness and trouble speaking resolved. She denies any other neurologic complaints. She did have some nausea with the dizziness but denies vomiting. She denies syncope. She denies chest discomfort, dyspnea, paroxysmal nocturnal dyspnea, orthopnea, palpitations, or lower extremity edema. She was then transferred to our hospital for further treatment and evaluation. She has had no recurrent neurologic complaints. Because of the question of a possible transient ischemic attack, a cardiology consultation was requested. Certain portions of this document may have been dictated utilizing voice recognition technology. Inherent to this technology, typographical and grammatical errors may exist. As much as I am diligent to identify and correct these mistakes, some errors may remain in the document. Review of Systems-Cardiology Review of Systems Other comments Review of 10 organ systems is as per the history of present illness, otherwise negative. IOE-Hycgho-Goggdj Hx Patient Social History Marrital Status: Smoking Status: Never a Smoker Have you traveled recently?: No Alcohol Use?: No Substance type: Caffeine Pt feels they are or have been: No Past Medical History PMH As described under Assessment. Family Medical History Family Medical History: She states that everyone in her family has had bypass surgery. Allergies and Home Medications Allergies Coded Allergies: No Known Drug Allergies (Unverified , 06/18/22) Patient Home Medication List Home Medication List Reviewed: Yes Aspirin (Aspirin EC) 81 Mg Tablet.dr, 81 MG PO DAILY, (Reported) Entered as Reported by: MJ ELLISON on 06/19/22 110 Last Action: Held Atorvastatin Calcium (Atorvastatin Calcium) 40 Mg Tablet, 40 MG PO HS, (Reported) Entered as Reported by: JM ELLISON on 06/19/22 110 Last Action: Held Metoprolol Succinate (Metoprolol Succinate) 50 Mg Tab.er.24h, 50 MG PO DAILY, (Reported) Entered as Reported by: JM ELLISON on 06/19/221103 Last Action: Continued Exam Vital Signs Vital Signs Date Time Temp Pulse Resp B/P (MAP) Pulse Ox O2 Delivery O2 Flow Rate FiO2 06/19/22 15:12 36.3 56 20 108/66 (80) 98 Room Air 06/18/22 18:25 21 Physical Exam General: Alert. No acute distress. Well nourished and appears stated age. Eye: Extraocular movements are intact. Conjunctivae are clear. There are no xanthelasma. HENT: Normocephalic. Atraumatic. Carotid pulsations 2/2 without bruits. Neck: Jugular venous pressure does not appear elevated. No thyromegaly appreciat ed. Respiratory: Lungs are clear to auscultation. Respirations are non-labored. Breath sounds are equal. Symmetrical chest wall expansion. Cardiovascular: Normal rate. Regular rhythm. No murmur. No gallop. Point of maximal impulse is not appear displaced. Good pulses equal in all extremities. No edema. Gastrointestinal: Soft. Normal bowel sounds. Skin: Skin turgor is normal. There is no pallor. Musculoskeletal: No kyphosis or scoliosis appreciated. Neurologic: Alert and oriented to person, place, time. Cranial nerves 3-12 appear grossly intact. The patient has good motor tone strength in the upper and lower extremities bilaterally. Psychiatric: Cooperative. Appropriate mood & affect. Labs Laboratory Tests Test 06/18/22 18:26 06/19/22 05:40 Range/Units Triglycerides Level 71 <150 MG/DL Cholesterol Level 266 H < 200 MG/DL LDL Cholesterol Direct 164 H 1-129 MG/DL VLDL Cholesterol 14 5-40 MG/DL HDL Cholesterol 84 H 40-60 MG/DL White Blood Count 4.8 4.3-11.0 10^3/uL Red Blood Count 4.17 3.80-5.11 10^6/uL Hemoglobin 12.2 11.5-16.0 g/dL Hematocrit 36 35-52 % Mean Corpuscular Volume 86 80-99 fL Mean Corpuscular Hemoglobin 29 25-34 pg Mean Corpuscular Hemoglobin Concent 34 32-36 g/dL Red Cell Distribution Width 13.8 10.0-14.5 % Platelet Count 243 130-400 10^3/uL Mean Platelet Volume 9.8 9.0-12.2 fL Immature Granulocyte % (Auto) 0 % Neutrophils (%) (Auto) 53 42-75 % Lymphocytes (%) (Auto) 34 12-44 % Monocytes (%) (Auto) 10 0-12 % Eosinophils (%) (Auto) 3 0-10 % Basophils (%) (Auto) 1 0-10 % Neutrophils # (Auto) 2.5 1.8-7.8 10^3/uL Lymphocytes # (Auto) 1.6 1.0-4.0 10^3/uL Monocytes # (Auto) 0.5 0.0-1.0 10^3/uL Eosinophils # (Auto) 0.2 0.0-0.3 10^3/uL Basophils # (Auto) 0.0 0.0-0.1 10^3/uL Immature Granulocyte # (Auto) 0.0 0.0-0.1 10^3/uL Sodium Level 134 L 135-145 MMOL/L Potassium Level 4.8 3.6-5.0 MMOL/L Chloride Level 104 98-107 MMOL/L Carbon Dioxide Level 23 21-32 MMOL/L Anion Gap 7 5-14 MMOL/L Blood Urea Nitrogen 14 7-18 MG/DL Creatinine 0.81 0.60-1.30 MG/DL Estimat Glomerular Filtration Rate 74 BUN/Creatinine Ratio 17 Glucose Level 87 70-105 MG/DL Calcium Level 9.9 8.5-10.1 MG/DL Corrected Calcium 10.0 8.5-10.1 MG/DL Total Bilirubin 0.6 0.1-1.0 MG/DL Aspartate Amino Transf (AST/SGOT) 19 5-34 U/L Alanine Aminotransferase (ALT/SGPT) 16 0-55 U/L Alkaline Phosphatase 63 40-136 U/L Total Protein 6.8 6.4-8.2 GM/DL Albumin 3.9 3.2-4.5 GM/DL ECG Impression ECG Comment Electrocardiogram from 06/18 in the emergency room shows sinus bradycardia at 59 bpm with nonspecific intraventricular conduction delay and nonspecific ST changes. Diagnosis/Problems Diagnosis/Problems (1) Transient ischemic attack Assessment & Plan: Her MRI did not show any evidence of an acute cerebrovascular accident. Her symptoms sound consistent with a neurologic event and may have been a transient ischemic attack. I concur with dual antiplatelet therapy and intensifying her dose of statin medication. Her CT angiograms of the carotids and carotid ultrasound did not show any significant extracranial or intracranial carotid disease. This raises a question of possible atrial fibrillation. I did explain to the patient about screening for atrial fibrillation and she would like to discuss this with her regular telegraphic typewriter installer from [facility] following discharge. That is not unreasonable. From a cardiac standpoint, she can be discharged to home. (2) Mitral regurgitation Assessment & Plan: Her echocardiogram showed mild mitral regurgitation and she has known about this in the past. This should not be causing symptoms and can be followed by her regular telegraphic typewriter installer following discharge. (3) Primary hypertension Assessment & Plan: Continue metoprolol. (4) Mixed hyperlipidemia Assessment & Plan: I agree with maximizing her dose of atorvastatin. BECKA SANTANA JR, MD Jun 19, 2022 17:21
[2022-06-20 03:32] VITALS: BP 114/63
[2022-06-20 06:14] LABS: BASOPHILS % (AUTO) 1 % (0-10); EOSINOPHILS # (AUTO) 0.1 10^3/uL (0.0-0.3); EOSINOPHILS % (AUTO) 3 % (0-10); HEMATOCRIT 36 % (35-52); LYMPHOCYTES # (AUTO) 1.6 10^3/uL (1.0-4.0); LYMPHOCYTES % (AUTO) 35 % (12-44); MEAN CORPUSCULAR HEMOGLOBIN 29 pg (25-34); MEAN CORPUSCULAR HGB CONC 33 g/dL (32-36); MEAN CORPUSCULAR VOLUME 88 fL (80-99); MONOCYTES # (AUTO) 0.5 10^3/uL (0.0-1.0); MONOCYTES % (AUTO) 11 % (0-12); NEUTROPHILS # (AUTO) 2.3 10^3/uL (1.8-7.8); NEUTROPHILS % (AUTO) 50 % (42-75); PLATELET COUNT 236 10^3/uL (130-400); WHITE BLOOD COUNT 4.6 10^3/uL (4.3-11.0)
[2022-06-20 06:24] LABS: ALBUMIN 3.8 GM/DL (3.2-4.5); POTASSIUM 4.9 MMOL/L (3.6-5.0)
[2022-06-20 06:26] LABS: CALCIUM 9.7 MG/DL (8.5-10.1)
[2022-06-20 06:27] LABS: TOTAL PROTEIN 6.6 GM/DL (6.4-8.2)
[2022-06-20 06:29] LABS: BILIRUBIN,TOTAL 0.6 MG/DL (0.1-1.0)
[2022-06-20 06:30] LABS: CREATININE SERUM 0.83 MG/DL (0.60-1.30)
[2022-06-20 07:38] VITALS: BP 139/67
[2022-06-20] MEDS ORDERED: meTOproloL SUCCINATE 50 MG (TOPROL XL) TAB PO SCH (09:00)
[2022-06-20] MEDS: CLOPIDOGREL 75 MG (PLAVIX) TABLET PO SCH (09:04)
[2022-06-20] MEDS: DOCUSATE SODIUM 100 MG (COLACE) CAP PO SCH (09:04)
[2022-06-20] MEDS: ASPIRIN 325 MG (5 GR) TABLET PO SCH (09:04)
[2022-06-20] MEDS ORDERED: CLOP75TA28 PO (10:26)
[2022-06-20] MEDS ORDERED: ATOR80TA76 PO (10:26)
--- NOTE | 2022-06-20 10:26 | Discharge Summary ---
Discharge Summary Hospital Course Was the Problem List Reviewed?: Yes Problems/Dx: (1) Expressive aphasia Status: Acute (2) Dizziness Status: Acute Hospital Course Date of Admission: Jun 18, 2022 at 17:57 Admission Diagnosis : Family Physician/Provider: Paul Triana MD Date of Discharge: 06/20/22 Discharge Diagnosis: expressive aphasia now resolved Hospital Course: Shanique Hernandez (76yo Female) was admitted to ED on 06/18/2022 with a chief complaint of dizziness and expressive aphasia. The expressive aphasia resolved shortly after the initial episode. Patient presentation was suspect for TIA. A stroke workup including EKG, bilateral carotid US, CT w/out contrast, and MRI was completed. All testing indicated there was no acute hemorrhage or ischemic changes present. Cardiology was consulted and the patient will be receiving outpatient telemetry for 2 weeks in order to screen for AFib. Patient is being discharged today (06/20/2022) on plavix (75mg) and aspirin (325mg) daily until she is able to meet with her PCP. She also is having the dosage of atorvastatin increased to 80mg. Patient plans to follow up with her bottom bleacher Dr. Ferguson at [facility]. JACOBDAVIDSON Jun 20, 2022 12:54 Labs and Pending Lab Test: Laboratory Tests 06/20/22 05:50: White Blood Count 4.6, Red Blood Count 4.09, Hemoglobin 12.0, Hematocrit 36, Mean Corpuscular Volume 88, Mean Corpuscular Hemoglobin 29, Mean Corpuscular Hemoglobin Concent 33, Red Cell Distribution Width 13.6, Platelet Count 236, Mean Platelet Volume 10.0, Immature Granulocyte % (Auto) 0, Neutrophils (%) (Auto) 50, Lymphocytes (%) (Auto) 35, Monocytes (%) (Auto) 11, Eosinophils (%) (Auto) 3, Basophils (%) (Auto) 1, Neutrophils # (Auto) 2.3, Lymphocytes # (Auto) 1.6, Monocytes # (Auto) 0.5, Eosinophils # (Auto) 0.1, Basophils # (Auto) 0.0, Immature Granulocyte # (Auto) 0.0, Sodium Level 133L, Potassium Level 4.9, Chloride Level 102, Carbon Dioxide Level 23, Anion Gap 8, Blood Urea Nitrogen 14, Creatinine 0.83, Estimat Glomerular Filtration Rate 72, BUN/Creatinine Ratio 17, Glucose Level 97, Calcium Level 9.7, Corrected Calcium 9.9, Total Bilirubin 0.6, Aspartate Amino Transf (AST/SGOT) 18, Alanine Aminotransferase (ALT/SGPT) 12, Alkaline Phosphatase 66, Total Protein 6.6, Albumin 3.8 Home Meds Active Reported Atorvastatin Calcium 40 Mg Tablet 40 Mg PO HS LAST FILLED 11-28-2021 #90/90 DAY SUPPLY Aspirin EC (Aspirin) 81 Mg Tablet.dr 81 Mg PO DAILY Metoprolol Succinate 50 Mg Tab.er.24h 50 Mg PO DAILY Assessment/Pt Instructions PCP 1 week Discharge Planning: <30 minutes discharge planning Discharge Instructions Discharge Diet: No Restrictions Discharge Physical Examination Vital Signs Vital Signs Date Time Temp Pulse Resp B/P (MAP) Pulse Ox O2 Delivery O2 Flow Rate FiO2 06/20/22 07:38 36.6 65 18 139/67 (91) 99 Room Air 06/18/22 18:25 21 General Appearance: No Apparent Distress, WD/WN, Chronically ill Respiratory: Lungs Clear Cardiovascular: Regular Rate, Rhythm Neurologic/Psychiatric: Alert, Oriented x3, No Motor/Sensory Deficits, Normal Mood/Affect Allergies: Coded Allergies: No Known Drug Allergies (Unverified , 06/18/22) Discharge Summary Date of Admission Jun 18, 2022 at 17:57 Date of Discharge Discharge Date: Jun 20, 2022 Admission Diagnosis Assessment: Expressive aphasia now resolved Hypertension Hyperlipidemia Plan: Increase statin Aspirin and Plavix Await MRI results Consult cardiology Telemetry Discharge Diagnosis (1) Expressive aphasia Status: Acute (2) Dizziness Status: Acute ISSAC DOZIER DO Jun 20, 2022 10:26
[2022-06-20 11:27] VITALS: BP 137/62
--- NOTE | 2022-06-20 12:54 | Progress Note ---
DAVIDSON JAMES 06/20/22 1254: Progress Note Shanique Hernandez (76yo Female) was admitted to ED on 06/18/2022 with a chief complaint of dizziness and expressive aphasia. The expressive aphasia resolved shortly after the initial episode. Patient presentation was suspect for TIA. A stroke workup including EKG, bilateral carotid US, CT w/out contrast, and MRI was completed. All testing indicated there was no acute hemorrhage or ischemic changes present. Cardiology was consulted and the patient will be receiving outpatient telemetry for 2 weeks in order to screen for AFib. Patient is being discharged today (06/20/2022) on plavix (75mg) and aspirin (325mg) daily until she is able to meet with her PCP. She also is having the dosage of atorvastatin increased to 80mg. 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 MILADIS DOZIER DO 06/20/223: Supervisory-Addendum Brief Verification & Attestation Participated in pt care: history, MDM, physical Personally performed: exam, history, MDM, supervision of care Care discussed with: Medical Student Procedures: n/a Results interpretation: Verified all documentation Verification and Attestation of Medical Student E/M Service A medical student performed and documented this service in my presence. I reviewed and verified all information documented by the medical student and made modifications to such information, when appropriate. I personally performed the physical exam and medical decision making. Miladis Dozier Jun 20, 2022,21:13 DAVIDSON JAMES Jun 20, 2022 12:54 MILADIS DOZIER DO Jun 20, 2022 21:13
--- NOTE | 2022-06-20 13:01 | Cardiology Progress Note ---
Progress Note-Cardiology Events since last exam Date Seen by Provider: Jun 20, 2022 Time Seen by Provider: 13:01 Events since last exam I am following her for a TIA. She denies any recurrent neurologic symptoms. She denies chest pain, dyspnea, palpitations, syncope or ankle edema. Vitals Last set of Vitals Signs Vital Signs 06/18/22 06/20/22 18:25 13:45 Temp 36.4 Pulse 70 Resp 18 B/P (MAP) 137/62 Pulse Ox 100 O2 Delivery Room Air FiO2 21 Labs Labs Laboratory Tests 06/20/22 05:50 Exam Vital Signs Vital Signs Date Time Temp Pulse Resp B/P (MAP) Pulse Ox O2 Delivery O2 Flow Rate FiO2 06/20/22 13:45 36.4 70 18 137/62 100 Room Air 06/18/22 18:25 21 Physical Exam General: Alert. No acute distress. Eye: No xanthelasma. HENT: Normocephalic. Neck: Jugular venous pressure does not appear elevated. Respiratory: Lungs are clear to auscultation. Respirations are non-labored. Breath sounds are equal. Symmetrical chest wall expansion. Cardiovascular: Normal rate. Regular rhythm. 2/6 systolic ejection murmur. No gallop. No edema. Gastrointestinal: Soft. Normal bowel sounds. Skin: Warm. Dry. Neurologic: Alert and oriented to person, place, time. Cranial nerves 3-11 grossly intact. Psychiatric: Cooperative. Appropriate mood & affect. Labs Laboratory Tests Test 06/20/22 05:50 Range/Units White Blood Count 4.6 4.3-11.0 10^3/uL Red Blood Count 4.09 3.80-5.11 10^6/uL Hemoglobin 12.0 11.5-16.0 g/dL Hematocrit 36 35-52 % Mean Corpuscular Volume 88 80-99 fL Mean Corpuscular Hemoglobin 29 25-34 pg Mean Corpuscular Hemoglobin Concent 33 32-36 g/dL Red Cell Distribution Width 13.6 10.0-14.5 % Platelet Count 236 130-400 10^3/uL Mean Platelet Volume 10.0 9.0-12.2 fL Immature Granulocyte % (Auto) 0 % Neutrophils (%) (Auto) 50 42-75 % Lymphocytes (%) (Auto) 35 12-44 % Monocytes (%) (Auto) 11 0-12 % Eosinophils (%) (Auto) 3 0-10 % Basophils (%) (Auto) 1 0-10 % Neutrophils # (Auto) 2.3 1.8-7.8 10^3/uL Lymphocytes # (Auto) 1.6 1.0-4.0 10^3/uL Monocytes # (Auto) 0.5 0.0-1.0 10^3/uL Eosinophils # (Auto) 0.1 0.0-0.3 10^3/uL Basophils # (Auto) 0.0 0.0-0.1 10^3/uL Immature Granulocyte # (Auto) 0.0 0.0-0.1 10^3/uL Sodium Level 133 L 135-145 MMOL/L Potassium Level 4.9 3.6-5.0 MMOL/L Chloride Level 102 98-107 MMOL/L Carbon Dioxide Level 23 21-32 MMOL/L Anion Gap 8 5-14 MMOL/L Blood Urea Nitrogen 14 7-18 MG/DL Creatinine 0.83 0.60-1.30 MG/DL Estimat Glomerular Filtration Rate 72 BUN/Creatinine Ratio 17 Glucose Level 97 70-105 MG/DL Calcium Level 9.7 8.5-10.1 MG/DL Corrected Calcium 9.9 8.5-10.1 MG/DL Total Bilirubin 0.6 0.1-1.0 MG/DL Aspartate Amino Transf (AST/SGOT) 18 5-34 U/L Alanine Aminotransferase (ALT/SGPT) 12 0-55 U/L Alkaline Phosphatase 66 40-136 U/L Total Protein 6.6 6.4-8.2 GM/DL Albumin 3.8 3.2-4.5 GM/DL Diagnosis/Problems Diagnosis/Problems (1) Transient ischemic attack Assessment & Plan: Her MRI did not show any evidence of an acute cerebrovascular accident. Her symptoms sound consistent with a neurologic event and may have been a transient ischemic attack. Her CT angiograms of the carotids and carotid ultrasound did not show any significant extracranial or intracranial carotid disease. This raises a question of possible atrial fibrillation. I concur with dual antiplatelet therapy and intensifying her dose of statin medication.She was previously thinking of discussing additional testing with her ambulette driver from the outside facility but she has decided to follow with me in [place]. I have arranged for a 2 week event monitor. If this does not show atrial fibrillation, then we may need to consider an implantable loop recorder which I can arrange as an outpatient procedure if needed. (2) Mitral regurgitation Assessment & Plan: Her echocardiogram showed mild mitral regurgitation and she has known about this in the past. This should not be causing symptoms but we may want to consider a follow up echocardiogram in 1-2 years. (3) Primary hypertension Assessment & Plan: Continue metoprolol. (4) Mixed hyperlipidemia Assessment & Plan: I agree with maximizing her dose of atorvastatin. BECKA SANTANA JR, MD Jun 20, 2022 13:01
[2022-06-20 13:45] VITALS: BP 137/62
== END 2022-06-20 13:45 | disposition home or self-care (01) ==
LOC: EDUNIT# 13:24 → ER FS 13:25 → 4TH 17:55 → UNDOADMOB 17:57 → 4TH 17:57 → UNDODISOB 06-20 13:45
PROVIDERS: ADMIT Internal Medicine; ATTEND Internal Medicine
DX: G45.9 Transient cerebral ischemic attack, unspecified (principal); R47.01 Aphasia; I10 Essential (primary) hypertension; R29.708 NIHSS score 8; E78.2 Mixed hyperlipidemia; I34.0 Nonrheumatic mitral (valve) insufficiency; M81.0 Age-related osteoporosis without current pathological fracture; H91.92 Unspecified hearing loss, left ear; Z20.822 Contact with and (suspected) exposure to COVID-19; I25.2 Old myocardial infarction; Z79.82 Long term (current) use of aspirin
CPT/HCPCS: 36415; 70450; 70496; 70498; 70551; 71045; 80053 ×3; 80061; 81000; 83036; 83735; 84443; 84484; 85025 ×3; 85610; 85730; 87636; 93005; 93041; 93306; 93880; 94664; 94760 ×2; 96372 ×2; 97162; 99284; G0378; Q9967

== ENCOUNTER → 2022-06-20 | Outpatient (CLI) | payer MEDICARE, OTHER ==
[~2022-06-20] MED LIST: ASPI-1238 PO; ATOR40TA70 PO; ATOR80TA76 PO; CLOP75TA28 PO; METO50TA7 PO
== END ==
LOC: CARD 14:00
PROVIDERS: ATTEND Internal Medicine Cardiovascular Disease
DX: G45.9 Transient cerebral ischemic attack, unspecified (principal)

== ENCOUNTER 2022-07-06 11:37 | Emergency (ER) | payer MEDICARE, OTHER ==
[~2022-07-06] VITALS: Ht 165.1 cm; Wt 65.8 kg
[2022-07-06] MEDS ORDERED: NS IV 500 ML 500 ML IV STA (12:05)
--- NOTE | 2022-07-06 12:10 | ED Neurological Problem ---
General Chief Complaint: Dizziness/Syncope Stated Complaint: DIZZINESS Nursing Triage Note: Nausea and dizziness going since this AM. Recent stroke 2 wks prior. Source: patient, family, old records Exam Limitations: no limitations History of Present Illness Date Seen by Provider: Jul 06, 2022 Time Seen by Provider: 11:38 Initial Comments 76-year-old female with past medical history of CAD, hypertension, hyperlipidemia coming in due to dizziness and lightheadedness with nausea. The patient was admitted to the hospital with similar symptoms beginning of June with concern for potential TIA versus stroke. CT/CTA of the head and neck as well as MRI of the brain were without acute abnormalities including no signs of ischemia. Cardiac work-up unremarkable. Symptoms have persisted since then off and on and started back up last night getting worse this morning about 2 hours prior to arrival. Its not really positional, but does come and go, the room sometimes is spinning but sometimes not. She mostly feels like she is going to pass out. She has had a Holter monitor in place but has not gotten results yet. Has been eating and drinking normally. Denies any chest pain, shortness of breath, abdominal pain, vomiting, diarrhea, focal weakness or numbness, vision changes, headache, or any other concerns. She has been taking her medicines as prescribed. She has not had any falls or trauma. Allergies and Home Medications Allergies Coded Allergies: No Known Drug Allergies (Unverified , 06/18/22) Patient Home Medication List Home Medication List Reviewed: Yes Aspirin (Aspirin EC) 81 Mg Tablet.dr, 81 MG PO DAILY, (Reported) Entered as Reported by: JM ELLISON on 06/19/22 1104 Atorvastatin Calcium (Atorvastatin Calcium) 80 Mg Tablet, 80 MG PO HS Prescribed by: ISSAC DOZIER on 06/20/22 1026 Clopidogrel Bisulfate (Clopidogrel) 75 Mg Tablet, 75 MG PO DAILY Prescribed by: ISSAC DOZIER on 06/20/22 1026 Metoprolol Succinate (Metoprolol Succinate) 50 Mg Tab.er.24h, 50 MG PO DAILY, (Reported) Entered as Reported by: JM ELLISON on 06/19/22 1104 Review of Systems Review of Systems Constitutional: No fever Eyes: Denies Blurred Vision Ears, Nose, Mouth, Throat: denies ear discharge Respiratory: no symptoms reported Cardiovascular: no symptoms reported Gastrointestinal: no symptoms reported Genitourinary: no symptoms reported Musculoskeletal: no symptoms reported Skin: no symptoms reported Psychiatric/Neurological: See HPI Endocrine: No Symptoms Reported Hematologic/Lymphatic: No Symptoms Reported All Other Systems Reviewed Negative Unless Noted: Yes Past Olesozt-Zcfkgj-Deahde Hx Patient Social History Tobacco Use?: No Substance use?: No Alcohol Use?: No Pt feels they are or have been: No Immunizations Up To Date First/Initial COVID19 Vaccinat: Yes Second COVID19 Vaccination Jose: Yes Seasonal Allergies Seasonal Allergies: No Past Medical History Surgery/Hospitalization HX: HTN; Osteoporosis; Back surgery, hip surgery Surgeries: Yes Eye Surgery, Hysterectomy, Orthopedic High Cholesterol Arthritis Hearing Impairment: Hard of Hearing Family Medical History Heart Disease Physical Exam Vital Signs Vital Signs - First Documented 07/06/22 07/06/22 11:50 12:30 Pulse 77 Resp 17 B/P (MAP) 158/85 (109) Pulse Ox 99 O2 Delivery Room Air Capillary Refill : Less Than 3 Seconds Height, Weight, BMI Height: '" Weight: lbs. oz. kg; 24.00 BMI Method: General Appearance: WD/WN, no apparent distress HEENT: PERRL/EOMI, normal ENT inspection, TMs normal, pharynx normal Neck: non-tender, full range of motion, supple, normal inspection Respiratory: chest non-tender, lungs clear, normal breath sounds, no respiratory distress, no accessory muscle use Cardiovascular: regular rate, rhythm, no edema, no murmur Gastrointestinal: normal bowel sounds, non tender, soft; No distended, No guarding, No rebound Back: normal inspection, no CVA tenderness Extremities: normal range of motion, non-tender, normal inspection, no pedal edema, no calf tenderness, normal capillary refill Neurologic/Psychiatric: 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, no motor/sensory deficits, alert, normal mood/affect, oriented x 3 Crainal Nerves: normal hearing, normal speech, PERRL Coordination/Gait: normal finger to nose, normal gait Motor/Sensory: no motor deficit, no sensory deficit Skin: normal color, warm/dry Lymphatic: no adenopathy Stroke Onset of Symptoms Date of Onset of Symptoms: Jul 05, 2022 Time of Symptom Onset: 20:00 Onset of Symptoms: Yes NIH Stroke Scale Assessment Select: Initial Level of Consciousness: 0=Alert (0), Level of Consciousness- Questions: 0=Answers both month/age (0), LOC Commands: 0=Performs both tasks (0), Gaze: Normal (0), Visual Ramirez: 0=No visual loss (0), Facial Movement (Facial Paresis): 0=Normal symmetrical mnt (0), Motor Function-Arms Right: 0=No drift (0), Motor Function-Arms Left: 0=No drift (0), Motor Function-Legs Right: 0=No drift (0), Motor Function-Legs Left: 0=No drift (0), Limb Ataxia: 0=Absent (0), Sensory: 0=Normal:no loss (0), Best Language: 0=No aphasia (0), Dysarthria: 0=Normal (0), Extinction & Inattention: 0=No abnormality (0), Total: 0 IV - TPa Received IV - TPa Procedure Performed?: No Progress/Results/Core Measures Results/Orders Lab Results Laboratory Tests Test 07/06/22 11:39 07/06/22 12:00 07/06/22 12:26 Range/Units Urine Color YELLOW Urine Clarity CLEAR Urine pH 6.0 5-9 Urine Specific [place] <=1.005 1.016-1.022 Urine Protein NEGATIVE NEGATIVE Urine Glucose (UA) NEGATIVE NEGATIVE Urine Ketones NEGATIVE NEGATIVE Urine Nitrite NEGATIVE NEGATIVE Urine Bilirubin NEGATIVE NEGATIVE Urine Urobilinogen 0.2 < = 1.0 MG/DL Urine Leukocyte Esterase 2+ H NEGATIVE Urine RBC (Auto) NEGATIVE NEGATIVE Urine RBC 0-2 /HPF Urine WBC 5-10 H /HPF Urine Squamous Epithelial Cells 0-2 /HPF Urine Crystals NONE /LPF Urine Bacteria TRACE /HPF Urine Casts NONE /LPF Urine Mucus NEGATIVE /LPF Urine Culture Indicated YES White Blood Count 6.7 4.3-11.0 10^3/uL Red Blood Count 4.18 3.80-5.11 10^6/uL Hemoglobin 12.2 11.5-16.0 g/dL Hematocrit 36 35-52 % Mean Corpuscular Volume 86 80-99 fL Mean Corpuscular Hemoglobin 29 25-34 pg Mean Corpuscular Hemoglobin Concent 34 32-36 g/dL Red Cell Distribution Width 13.7 10.0-14.5 % Platelet Count 251 130-400 10^3/uL Mean Platelet Volume 9.4 9.0-12.2 fL Immature Granulocyte % (Auto) 1 % Neutrophils (%) (Auto) 68 42-75 % Lymphocytes (%) (Auto) 23 12-44 % Monocytes (%) (Auto) 7 0-12 % Eosinophils (%) (Auto) 2 0-10 % Basophils (%) (Auto) 1 0-10 % Neutrophils # (Auto) 4.5 1.8-7.8 10^3/uL Lymphocytes # (Auto) 1.5 1.0-4.0 10^3/uL Monocytes # (Auto) 0.5 0.0-1.0 10^3/uL Eosinophils # (Auto) 0.1 0.0-0.3 10^3/uL Basophils # (Auto) 0.0 0.0-0.1 10^3/uL Immature Granulocyte # (Auto) 0.0 0.0-0.1 10^3/uL Prothrombin Time 13.2 12.2-14.7 SEC INR Comment 1.0 0.8-1.4 Activated Partial Thromboplast Time 32 24-35 SEC Sodium Level 132 L 135-145 MMOL/L Potassium Level 4.3 3.6-5.0 MMOL/L Chloride Level 98 98-107 MMOL/L Carbon Dioxide Level 25 21-32 MMOL/L Anion Gap 9 5-14 MMOL/L Blood Urea Nitrogen 11 7-18 MG/DL Creatinine 0.73 0.60-1.30 MG/DL Estimat Glomerular Filtration Rate 84 BUN/Creatinine Ratio 15 Glucose Level 116 H 70-105 MG/DL Calcium Level 9.9 8.5-10.1 MG/DL Corrected Calcium 9.6 8.5-10.1 MG/DL Total Bilirubin 0.4 0.1-1.0 MG/DL Aspartate Amino Transf (AST/SGOT) 22 5-34 U/L Alanine Aminotransferase (ALT/SGPT) 18 0-55 U/L Alkaline Phosphatase 79 40-136 U/L Troponin I < 0.30 <0.30 NG/ML Total Protein 7.1 6.4-8.2 GM/DL Albumin 4.4 3.2-4.5 GM/DL Glucometer 99 70-110 MG/DL My Orders Orders - ADVON LARA MD Cbc With Automated Diff (07/06/22 12:05) Protime With Inr (07/06/22 12:05) Partial Thromboplastin Time (07/06/22 12:05) Comprehensive Metabolic Panel (07/06/22 12:05) Troponin I Fs (07/06/22 12:05) Ua Culture If Indicated (07/06/22 12:05) Chest 1 View Ap/Pa Only (07/06/22 12:05) Ekg Tracing (07/06/22 12:05) Accucheck Stat ONCE (07/06/22 12:05) Ed Iv/Invasive Line Start (07/06/22 12:05) Vital Signs Stroke Patient Q15M (07/06/22 12:05) Ct Head Wo-R/O Stroke (07/06/22 12:05) O2 (07/06/22 12:05) Intake & Output 06,14,22 (07/06/22 12:05) Monitor-Rhythm Ecg Trace Only (07/06/22 12:05) Dysphagia Screening Tool Q10MX1 (07/06/22 12:05) Ns Iv 500 Ml (Sodium Chloride 0.9%) (07/06/22 12:05) Meclizine Tablet (Antivert Tablet) (07/06/22 12:15) Ondansetron Injection (Zofran Injectio (07/06/22 12:15) Urine Culture (07/06/22 11:39) Medications Given in ED Current Medications Medications Dose Ordered Sig/Nafisa Route Start Time Stop Time Status Last Admin Dose Admin Meclizine HCl 25 mg ONCE ONCE PO 07/06/22 12:15 07/06/22 12:16 DC 07/06/22 12:32 25 MG Ondansetron HCl 4 mg ONCE ONCE IVP 07/06/22 12:15 07/06/22 12:16 DC 07/06/22 12:18 4 MG Vital Signs/I&O 07/06/22 07/06/22 07/06/22 11:50 12:30 12:35 Pulse 77 63 Resp 17 14 B/P (MAP) 158/85 (109) 146/82 Pulse Ox 99 98 99 O2 Delivery Room Air Blood Pressure Mean: 109 Progress Progress Note : Progress Note 76-year-old female with above history coming in due to lightheadedness and near syncope. ABCs were intact and vitals are stable on presentation although she is mildly hypertensive. Physical exam normal including a normal neurologic exam with an NIH score of 0. Glucose normal at 99. EKG with no acute ischemic changes. An IV was placed and basic labs were obtained including cardiac biomarkers. These were essentially unremarkable. CT head with no acute changes and chest x-ray with no acute changes as well. This sounds similar to the patient's symptoms in which she had an extensive work-up for stroke including n egative MRI. Possible this is more vertigo-like and inner ear could be the cause. She was given meclizine as well as Zofran with some improvement in her symptoms. I will have her follow-up with ENT to further evaluate this given this is more of a chronic issue at this point. Urinalysis with some white blood cells and leukocyte esterase. Given her vague symptoms, we will go ahead and treat this. I otherwise believe she is stable for discharge with outpatient follow-up. She was sent home with strict return precautions. In regards to her blood pressure, I told her to take a log twice a day and to write how she is feeling. I told her to then contact her PCP if numbers are consistently high to add a blood pressure medicine. Initial ECG Impression Date: Jul 06, 2022 Initial ECG Impression Time: 12:28 Initial ECG Rate: 56 Initial ECG Rhythm: S.Vinh Comment Narrow QRS, borderline left axis deviation, no significant ST changes or T wave abnormalities, appears similar to prior EKG, LVH Diagnostic Imaging Diagonstic Imaging: Xray (chest), CT (head) Comments [facility] [place], [place] NAME: IGNACIA HORTON [facility] REC#: [id number] PT STATUS: REG ER : 1945 PHYSICIAN: DAVON LARA MD ADMIT DATE: 07/06/22/ER FS Draft Date of Exam:07/06/22 CT HEAD WO-R/O STROKE EXAMINATION: CT head without contrast. TECHNIQUE: Multiple contiguous axial images were obtained through the brain without the use of intravenous contrast. All CT scans use one or more of the following dose optimizing techniques: automated exposure control, MA and/or KvP adjustment based on patient size and exam type or iterative reconstruction. HISTORY: Dizziness. Concern for acute ischemia. COMPARISON: 06/19/2022. FINDINGS: No large acute territorial ischemia, mass, or hemorrhage. No midline shift or mass effect. The ventricles, cortical sulci, and basilar cisterns are patent and unremarkable. The orbits are normal. Paranasal sinuses are normal. Mastoid air cells are clear. No soft tissue abnormality is seen. No osseous lesions or fractures are seen. IMPRESSION: 1. No large acute territorial ischemia, mass, or hemorrhage. Findings were discussed with Dr. Lara at 12:30 p.m. on 07/06/[address] Trujillo. Dictated on workstation # [id number] Dict: 07/06/22 1226 Trans: 07/06/22 1231 [facility] [id number] Interpreted by: FARHAD TRUJILLO DO Electronically signed by: [facility] [place], [place] NAME: IGNACIA HORTON [facility] REC#: [id number] PT STATUS: REG ER : 1945 PHYSICIAN: DAVON LARA MD ADMIT DATE: 07/06/22/ER FS Signed Date of Exam:07/06/22 CHEST 1 VIEW AP/PA ONLY EXAMINATION: Chest 1 view HISTORY: Weakness. Dizziness. COMPARISON: 06/18/2022. FINDINGS: The lung volumes are normal. No focal consolidation is seen. No large pleural effusion or pneumothorax is seen. The cardiomediastinal silhouette is normal in size and contour. No acute osseous abnormality is seen. IMPRESSION: 1. No acute pleuroparenchymal process. Dictated by: Dictated on workstation # [id number] Dict: 07/06/22 1222 Trans: 07/06/22 1226 [id number] Interpreted by: FARHAD TRUJILLO DO Electronically signed by: FARHAD TRUJILLO DO 07/06/22 1226 Departure Impression Primary Impression: Near syncope Additional Impression: Light headed Disposition: 01 HOME, SELF-CARE Condition: Stable Departure-Patient Inst. Decision time for Depature: 13:05 Referrals: ARIA NASH MD (PCP/Family) Primary Care Physician Patient Instructions: Dizziness, Adult ED Add. Discharge Instructions: Be sure to drink plenty of fluids at home, and be very careful, I recommend using a walker. If you are having some continued dizziness and feeling like the room is spinning I recommend following up with Dr. Verdin to see if there is anything that can be done. Your head imaging is consistently negative for any signs of stroke. Your urine does look like there could be a mild infection so we will start you on antibiotics. You can take the meclizine if you are feeling dizzy and the Zofran if you are feeling nauseous. I recommend writing down your blood pressures in a log twice a day and writing down what you feel like before you take your pressure. If you consistently have high blood pressures and you are feeling symptomatic (dizzy or like you are going to pass out) at that time t hen I recommend calling your doctor to see if they can add a blood pressure medicine. Of course if you are having high blood pressure and a symptoms such as crushing chest pain, severe shortness of breath, unable to move 1 side of her body you are unable to feel 1 side of her body, otherwise headache of her life would want you to come back to the ER. Scripts Ondansetron (Ondansetron Odt) 4 Mg Tab.rapdis 4 MG PO Q6H PRN for NAUSEA/VOMITING-1ST LINE for 5 Days, #20 TAB Prov: DAVON LARA MD 07/06/22 Meclizine HCl (Meclizine HCl) 25 Mg Tablet 25 MG PO Q12H PRN for DIZZINESS for 7 Days, #14 TAB Prov: DAVON LARA MD 07/06/22 Nitrofurantoin Monohyd/M-Cryst (Macrobid 100 mg Capsule) 100 Mg Capsule 1 TAB PO BID for 5 Days, #10 CAP Prov: DAVON LARA MD 07/06/22 DAVON LARA MD Jul 06, 2022 12:10
[2022-07-06 12:14] LABS: BASOPHILS % (AUTO) 1 % (0-10); EOSINOPHILS # (AUTO) 0.1 10^3/uL (0.0-0.3); EOSINOPHILS % (AUTO) 2 % (0-10); HEMATOCRIT 36 % (35-52); HEMOGLOBIN 12.2 g/dL (11.5-16.0); LYMPHOCYTES # (AUTO) 1.5 10^3/uL (1.0-4.0); LYMPHOCYTES % (AUTO) 23 % (12-44); MEAN CORPUSCULAR HEMOGLOBIN 29 pg (25-34); MEAN CORPUSCULAR HGB CONC 34 g/dL (32-36); MEAN CORPUSCULAR VOLUME 86 fL (80-99); MEAN PLATELET VOLUME 9.4 fL (9.0-12.2); MONOCYTES # (AUTO) 0.5 10^3/uL (0.0-1.0); MONOCYTES % (AUTO) 7 % (0-12); NEUTROPHILS # (AUTO) 4.5 10^3/uL (1.8-7.8); NEUTROPHILS % (AUTO) 68 % (42-75); PLATELET COUNT 251 10^3/uL (130-400); WHITE BLOOD COUNT 6.7 10^3/uL (4.3-11.0)
[2022-07-06] MEDS ORDERED: MECLIZINE 25 MG (ANTIVERT) TAB PO ONE (12:15)
[2022-07-06] MEDS ORDERED: ONDANSETRON 4 MG/2 ML (SDV) Z0FRAN IVP ONE (12:15)
[2022-07-06 12:16] LABS: BILIRUBIN,URINE NEGATIVE (NEGATIVE); CLARITY,URINE CLEAR; COLOR,URINE YELLOW; GLUCOSE, URINE (UA) NEGATIVE (NEGATIVE); KETONES,URINE NEGATIVE (NEGATIVE); LEUKOCYTE ESTERASE ,URINE 2+ (NEGATIVE); NITRITE,URINE NEGATIVE (NEGATIVE); PROTEIN,URINE NEGATIVE (NEGATIVE)
--- NOTE | 2022-07-06 12:24 | Diagnostic Imaging Report ---
EXAMINATION: Chest 1 view HISTORY: Weakness. Dizziness. COMPARISON: 06/18/2022. FINDINGS: The lung volumes are normal. No focal consolidation is seen. No large pleural effusion or pneumothorax is seen. The cardiomediastinal silhouette is normal in size and contour. No acute osseous abnormality is seen. IMPRESSION: 1. No acute pleuroparenchymal process. Dictated by: Dictated on workstation # [id number]
[2022-07-06 12:26] LABS: BACTERIA,URINE TRACE /HPF; RBC,URINE 0-2 /HPF
[2022-07-06 12:27] LABS: SQUAMOUS EPITHELIAL CELL,UR 0-2 /HPF
--- NOTE | 2022-07-06 12:32 | Diagnostic Imaging Report ---
EXAMINATION: CT head without contrast. TECHNIQUE: Multiple contiguous axial images were obtained through the brain without the use of intravenous contrast. All CT scans use one or more of the following dose optimizing techniques: automated exposure control, MA and/or KvP adjustment based on patient size and exam type or iterative reconstruction. HISTORY: Dizziness. Concern for acute ischemia. COMPARISON: 06/19/2022. FINDINGS: No large acute territorial ischemia, mass, or hemorrhage. No midline shift or mass effect. The ventricles, cortical sulci, and basilar cisterns are patent and unremarkable. The orbits are normal. Paranasal sinuses are normal. Mastoid air cells are clear. No soft tissue abnormality is seen. No osseous lesions or fractures are seen. IMPRESSION: 1. No large acute territorial ischemia, mass, or hemorrhage. Findings were discussed with Dr. Medina at 12:30 p.m. on 07/06/[address] Trujillo. Dictated by: Dictated on workstation # [id number]
[2022-07-06 12:35] VITALS: BP 146/82
[2022-07-06 12:39] LABS: CHLORIDE 98 MMOL/L (98-107); POTASSIUM 4.3 MMOL/L (3.6-5.0); SODIUM 132 MMOL/L (135-145)
[2022-07-06 12:40] LABS: ALANINE AMINOTRANSFERASE 18 U/L (0-55); ALBUMIN 4.4 GM/DL (3.2-4.5); ALKALINE PHOSPHATASE 79 U/L (40-136); BILIRUBIN,TOTAL 0.4 MG/DL (0.1-1.0); BUN/CREATININE RATIO 15; CALCIUM 9.9 MG/DL (8.5-10.1); CARBON DIOXIDE 25 MMOL/L (21-32); CREATININE SERUM 0.73 MG/DL (0.60-1.30); GFR ESTIMATED 84; GLUCOSE 116 MG/DL (70-105); TOTAL PROTEIN 7.1 GM/DL (6.4-8.2)
[2022-07-06 12:42] LABS: PROTHROMBIN TIME PATIENT 13.2 SEC (12.2-14.7)
[2022-07-06] MEDS ORDERED: ONDA4TAB11 PO (13:07)
[2022-07-06] MEDS ORDERED: MECL-149 PO (13:07)
[2022-07-06] MEDS ORDERED: NITR-65 PO (13:07)
[2022-07-06 13:16] VITALS: BP 142/68
== END 2022-07-06 13:16 ==
LOC: EDUNIT# 11:37 → ER FS 11:39
DX: R55 Syncope and collapse (principal); R42 Dizziness and giddiness; R11.0 Nausea; I10 Essential (primary) hypertension
CPT/HCPCS: 36415; 70450; 71045; 80053; 81000; 82947; 84484; 85025; 85610; 85730; 87077; 87088; 87186; 93005; 93041

== ENCOUNTER → 2022-08-02 | Outpatient (CLI) | payer MEDICARE, OTHER ==
[~2022-08-02] MED LIST changes: +CATHETER FLUSH 10 ML SYR IVP PRN; +MECL-149 PO; +NITR-65 PO; +ONDA4TAB11 PO; +REGADENOSON 0.4 MG/5 ML SYR (LEXISCAN) IV ONE
[2022-08-02 09:32] VITALS: BP 149/74
--- NOTE | 2022-08-03 17:18 | NUCLEAR STRESS TEST ---
REGADENOSON NUCLEAR STRESS Date of procedure: 08/02/2022. Primary care provider: Paul Triana MD Admitting physician: Abdi Sigala Jr., MD. INDICATION: Abnormal electrocardiogram. BASELINE ELECTROCARDIOGRAM: Sinus rhythm with first-degree AV block, nonspecific intraventricular conduction delay and poor R wave progression. STRESS TEST PROCEDURE: The patient was administered 0.4 mg of intravenous Regadenoson. The resting heart rate was 69 bpm and the peak heart rate was 109 b pm. The resting blood pressure was 149/74 mmHg and the minimum blood pressure was 144/61 mmHg. This represents a normal heart rate and a normal blood pressure response to Regadenoson. The test was stopped due to the protocol. There was no chest discomfort during the test. There were isolated premature ventricular complexes during the test. There were no significant stress induced electrocardiogram changes. NUCLEAR PROCEDURE: The patient was administered 10.6 mCi of intravenous technetium 99m Tetrofosmin at rest for the rest images. The patient was subsequently administered 32.3 mCi of intravenous technetium 99m Tetrofosmin at peak stress for the stress images. Following an appropriate wait after each injection, imaging was obtained. The images were subsequently processed and reformatted in the usual views. Gated imaging was obtained. The image quality was adequate with a mild degree of gastrointestinal attenuation artifact. CT attenuation correction was used as a adjunct to standard imaging. Both the corrected and uncorrected images were reviewed for interpretation. NUCLEAR RESULTS: There was normal myocardial perfusion in all segments without evidence of infarction or ischemia. There was normal left ventricular chamber size with an end-diastolic volume of 25 mL and an end-systolic volume of 7 mL. There was no evidence of transient ischemic dilatation. The TID ratio was 0.97. There was paradoxical septal motion consistent with an intraventricular conduction delay with overall normal left ventricular systolic function with a calculated ejection fraction of 70%. IMPRESSION: 1. Normal heart rate and blood pressure response to regadenoson. 2. There was no chest discomfort or electrocardiogram changes during the test. 3. There were isolated premature ventricular complexes during the test. 4. There was normal myocardial perfusion in all segments without evidence of infarction or ischemia. 5. There was paradoxical septal motion consistent with an intraventricular conduction delay with overall normal left ventricular systolic function with a calculated ejection fraction of 70%. Certain portions of this document may have been dictated utilizing voice recognition technology. Inherent to this technology, typographical and grammatical errors may exist. As much as I am diligent to identify and correct these mistakes, some errors may remain in the document. ABDI SIGALA JR, MD Aug 03, 2022 17:18
== END ==
LOC: CARD 08:45
PROVIDERS: ATTEND Internal Medicine Cardiovascular Disease
DX: R94.31 Abnormal electrocardiogram [ECG] [EKG] (principal)
CPT/HCPCS: 78452; 93017; A9502

== ENCOUNTER → 2022-12-18 | Outpatient (CLI) | payer MEDICARE, OTHER ==
[~2022-12-18] MED LIST changes: -CATHETER FLUSH 10 ML SYR IVP PRN; -REGADENOSON 0.4 MG/5 ML SYR (LEXISCAN) IV ONE
--- NOTE | 2022-12-18 14:45 | Diagnostic Imaging Report ---
Indication: Diarrhea COMPARISON: None available TECHNIQUE: Single radiograph of abdomen dated 12/18/2022. FINDINGS: Left total hip arthroplasty is partially visualized. Nonobstructive bowel gas pattern. No free air. [place] left curvature of the lumbar spine with scattered osseous degenerative changes. IMPRESSION: Nonobstructive bowel gas pattern without free air. [place] left curvature of the spine with associated degenerative changes. Dictated by: Dictated on workstation # [id number]
== END ==
LOC: RAD FS 09:45
PROVIDERS: ATTEND Family Medicine
DX: M43.8X9 Other specified deforming dorsopathies, site unspecified (principal); M19.90 Unspecified osteoarthritis, unspecified site; R19.7 Diarrhea, unspecified
CPT/HCPCS: 74018

== ENCOUNTER 2023-02-20 06:43 | Outpatient (CLI) | payer MEDICARE, OTHER ==
[~2023-02-20] VITALS: Ht 165.1 cm; Wt 67.6 kg
[2023-02-20] MEDS ORDERED: ALEN70TA85 PO (09:18)
[2023-02-20] MEDS ORDERED: CHOL100048 PO (09:18)
[2023-02-20] MEDS ORDERED: FLUT15.845 NS (09:18)
== END 2023-02-20 09:19 | disposition home or self-care (01) ==
LOC: PREOP 06:43
PROVIDERS: ATTEND Surgery
DX: Z01.818 Encounter for other preprocedural examination (principal)

== ENCOUNTER 2023-02-28 12:13 | Day surgery (SDC) | payer MEDICARE, OTHER ==
[~2023-02-28] VITALS: Ht 165 cm; Wt 67.6 kg
[~2023-02-28 12:13] MED LIST changes: +ALEN70TA85 PO; +CHOL100048 PO; +FLUT15.845 NS
[2023-02-28] MEDS ORDERED: LACTATED RINGERS 1,000 ML IV STA (12:22)
[2023-02-28] MEDS ORDERED: HURRICAINE EXT TUBE (BENZOCAINE) XX PRN (12:30)
[2023-02-28] MEDS ORDERED: PROPOFOL INJECTION 50 ML IV ONE (12:38)
[2023-02-28 12:45] VITALS: BP 147/71
--- NOTE | 2023-02-28 13:04 | Progress Note-Pre Operative ---
Pre-Operative Progress Note Date H&P Reviewed: Feb 28, 2023 Time H&P Reviewed: 12:45 History & Physical: H&P Reviewed, Patient Examed, No changes noted Pre-Operative Diagnosis: epigastric pain, chronic diarrhea BENNIE ZURITA DO Feb 28, 2023 13:04
--- NOTE | 2023-02-28 14:13 | Discharge Inst-Simple/Standard ---
Discharge Inst-Standard Reconcile Patient Problems Problems Reviewed?: Yes Patient Instructions/Follow Up Plan of Care/Instructions/FU: F/u in [address] Navas Activity as Tolerated: Yes Discharge Diet: No Restrictions, Regular Diet (high fiber) BENNIE NAVAS DO Feb 28, 2023 14:13
[2023-02-28 14:15] VITALS: BP 108/54
--- NOTE | 2023-02-28 14:15 | Progress Note-Post Operative ---
Post-Operative Progess Note Surgeon (s)/Grain Picker (s) Surgeon BENNIE ZURITA DO Grain Picker: n/a Pre-Operative Diagnosis epigastric pain, chronic diarrhea Post-Operative Diagnosis rectal polyp, small hiatal hernia Procedure & Operative Findings Date of Procedure 02/28/23 Procedure Performed/Findings EGD with biopsies, colonoscopy with random cold biopsies and hot biopsy polypectomy of rectal polyp Anesthesia Type per chief service observer Estimated Blood Loss Estimated blood loss (mL): none Specimens/Packing Specimens Removed GE junction and antrum biopsies, random colon biopsies x5, rectal polyp x1 BENNIE ZURITA DO Feb 28, 2023 14:15
--- NOTE | 2023-02-28 14:15 | Anesthesia-General Post-Op ---
MAC Patient Condition Mental Status/LOC: Same as Preop Cardiovascular: Satisfactory Nausea/Vomiting: Absent Respiratory: Satisfactory Pain: Controlled Complications: Absent Post Op Complications Complications None Follow Up Care/Instructions Patient Instructions None needed. Anesthesiology Discharge Order Discharge Order Patient is doing well, no complaints, stable vital signs, no apparent adverse anesthesia problems. No complications reported per nursing. SAVANNA LIPSCOMB CRNA Feb 28, 2023 14:15
[2023-02-28 14:20] VITALS: BP 105/57
[2023-02-28 14:44] VITALS: BP 105/57
--- NOTE | 2023-02-28 22:49 | OPERATIVE REPORT ---
DATE OF SERVICE: 02/28/2023 PREOPERATIVE DIAGNOSES: Epigastric abdominal pain, chronic diarrhea. POSTOPERATIVE DIAGNOSES: Rectal polyp, small hiatal hernia. PROCEDURES: EGD with biopsies, colonoscopy with [ ] cold biopsy and hot biopsy polypectomy of rectal polyp. SURGEON: Bennie Navas DO ANESTHESIA: Per [employer]. ESTIMATED BLOOD LOSS: None. COMPLICATIONS: None. INDICATIONS: The patient is a 77-year-old female with epigastric abdominal pain, chronic diarrhea. She understands risks and benefits of procedure and wished to proceed. Consent was signed and in the chart. DESCRIPTION OF PROCEDURE: The patient was taken to the endoscopy suite, placed in left lateral recumbent position. Timeout was performed. Scope was inserted in the mouth, down the esophagus, stomach into the duodenum without difficulty. No polyps, masses or ulcerations. Scope was slowly retracted back until stomach where it was further insufflated. Slight erythematous changes present in the antrum. Biopsy was obtained. Scope was retroflexed noting a small hiatal hernia, no other pathology. Scope was returned to its normal position, slowly withdrawn until distal esophagus. No polyps, masses or ulcerations. Biopsy of GE junction was obtained. Scope was slowly retracted back until completely removed. Digital rectal exam was performed. No palpable polyps, masses or ulcerations. Scope was inserted in the rectum, advanced all the way to the cecum with minimal difficulty. Prep was adequate. No polyps, masses or ulcerations in the cecum, ascending, transverse, descending and sigmoid colon. Scope was being retracted, multiple cold biopsies were obtained. Also noted some diverticulosis as well. Once in the rectum, a small polyp was present, which hot biopsy polypectomy was performed. Scope was retroflexed noting no other pathology. Scope was returned to its normal position, slowly withdrawn until completely removed. The patient tolerated the procedure well without complications, taken to recovery room in stable condition. RECOMMENDATIONS: The patient will follow up on pathology results. The patient will need repeat colonoscopy on as needed basis. Job ID: [id number] DocumentID: [id number] Dictated Date: 02/28/2023 15:13:43 [employer] Message Broker Developer Date: 02/28/2023 22:48:00 Dictated By: BENNIE NAVAS DO
== END 2023-02-28 14:55 | disposition home or self-care (01) ==
LOC: ENDO 12:13
PROVIDERS: ATTEND Surgery
DX: D12.8 Benign neoplasm of rectum (principal); K31.89 Other diseases of stomach and duodenum; K52.9 Noninfective gastroenteritis and colitis, unspecified; K44.9 Diaphragmatic hernia without obstruction or gangrene; K57.30 Diverticulosis of large intestine without perforation or abscess without bleeding

== ENCOUNTER 2023-09-26 16:02 | Emergency (ER) | payer MEDICARE, OTHER ==
[~2023-09-26 16:02] MED LIST changes: -MECL-149 PO; +MECL-291 PO
--- NOTE | 2023-09-26 16:27 | ED Chest Pain ---
General Chief Complaint: Chest Pain Stated Complaint: CHEST PAIN History of Present Illness Date Seen by Provider: Sep 26, 2023 Time Seen by Provider: 16:11 Initial Comments 78-year-old female with PMH of CAD with negative cath done in 2017/HTN/HLD, who does not take a blood thinner but is on a baby aspirin daily, is here with complaints of chest pain which began around 6 AM today morning. Pain has been constant but patient only rates it around a 2-3 out of 10. It is nonradiating and left-sided. Denies recent illness, cough, fever and chills, nausea and vomiting, abdominal pain, palpitations, shortness of breath. Allergies and Home Medications Allergies Coded Allergies: No Known Drug Allergies (Unverified , 06/18/22) Patient Home Medication List Home Medication List Reviewed: Yes Alendronate Sodium (Fosamax) 70 Mg Tablet, 70 MG PO DAILY, (Reported) Entered as Reported by: ROSELYN LEÓN on 02/20/23917 Aspirin (Aspirin EC) 81 Mg Tablet.dr, 81 MG PO DAILY, (Reported) Entered as Reported by: JM ELLISON on 06/19/22 1104 Atorvastatin Calcium (Atorvastatin Calcium) 80 Mg Tablet, 80 MG PO HS Prescribed by: ISSAC DOZIER on 06/20/22 1026 Cholecalciferol (Vitamin D3) (Vitamin D3) 25 Mcg (1000 Unit) Capsule, 25 MCG PO DAILY, (Reported) Entered as Reported by: ROSELYN LEÓN on 02/20/23917 Fluticasone Propionate (Fluticasone Propionate) 50 Mcg/Actuation [place].susp, 15.8 ML NS DAILY, (Reported) Entered as Reported by: ROSELYN LEÓN on 02/20/23917 Meclizine HCl (Meclizine HCl) 25 Mg Tablet, 25 MG PO Q12H PRN for DIZZINESS Prescribed by: DAVON LARA on 07/06/22 1307 Metoprolol Succinate (Metoprolol Succinate) 50 Mg Tab.er.24h, 50 MG PO DAILY, (Reported) Entered as Reported by: JM ELLISON on 06/19/22 1104 Review of Systems Review of Systems Constitutional: no symptoms reported Respiratory: No Symptoms Reported Cardiovascular: Chest Pain Gastrointestinal: No Symptoms Reported Past Gqtuikc-Ymwjzo-Tvvnyl Hx Immunizations Up To Date First/Initial COVID19 Vaccinat: Yes Second COVID19 Vaccination Jose: Yes Third COVID19 Vaccination Date: Yes Seasonal Allergies Seasonal Allergies: No Past Medical History Surgery/Hospitalization HX: HTN; Osteoporosis; Back surgery, hip surgery Surgeries: Yes (HIP REPLACEMENT) Adenoidectomy, Eye Surgery, Hysterectomy, Orthopedic, Tonsillectomy Respiratory: No Cardiac: Yes Heart Attack, High Cholesterol, Hypertension Neurological: Yes Stroke Genitourinary: No Gastrointestinal: No Musculoskeletal: Yes Arthritis Endocrine: No HEENT: Yes Cataract Loss of Vision: Bilateral Hearing Impairment: Hard of Hearing Cancer: No Psychosocial: No Integumentary: No Blood Disorders: No Family Medical History Heart Disease Physical Exam Vital Signs Vital Signs - First Documented 09/26/23 16:03 Temp 36.4 Pulse 64 Resp 18 B/P (MAP) 174/59 (97) O2 Delivery Room Air Capillary Refill : Height, Weight, BMI Height: '" Weight: lbs. oz. kg; 24.83 BMI Method: General Appearance: No Apparent Distress, WD/WN HEENT: PERRL/EOMI Neck: Full Range of Motion, Normal Inspection, Non Tender Respiratory: Chest Non Tender, Lungs Clear, Normal Breath Sounds, No Accessory Muscle Use Cardiovascular: Regular Rate, Rhythm, No Edema Gastrointestinal: Normal Bowel Sounds, Non Tender, Soft Extremity: Normal Range of Motion Neurologic/Psychiatric: Alert, Oriented x3, No Motor/Sensory Deficits, Normal Mood/Affect Skin: Normal Color Progress/Results/Core Measures Results/Orders Lab Results Laboratory Tests Test 09/26/23 16:13 Range/Units White Blood Count 6.8 4.3-11.0 10^3/uL Red Blood Count 4.07 3.80-5.11 10^6/uL Hemoglobin 12.2 11.5-16.0 g/dL Hematocrit 38 35-52 % Mean Corpuscular Volume 92 80-99 fL Mean Corpuscular Hemoglobin 30 25-34 pg Mean Corpuscular Hemoglobin Concent 32 32-36 g/dL Red Cell Distribution Width 13.1 10.0-14.5 % Platelet Count 223 130-400 10^3/uL Mean Platelet Volume 10.1 9.0-12.2 fL Immature Granulocyte % (Auto) 0 % Neutrophils (%) (Auto) 53 42-75 % Lymphocytes (%) (Auto) 34 12-44 % Monocytes (%) (Auto) 8 0-12 % Eosinophils (%) (Auto) 4 0-10 % Basophils (%) (Auto) 1 0-10 % Neutrophils # (Auto) 3.6 1.8-7.8 10^3/uL Lymphocytes # (Auto) 2.3 1.0-4.0 10^3/uL Monocytes # (Auto) 0.6 0.0-1.0 10^3/uL Eosinophils # (Auto) 0.3 0.0-0.3 10^3/uL Basophils # (Auto) 0.1 0.0-0.1 10^3/uL Immature Granulocyte # (Auto) 0.0 0.0-0.1 10^3/uL Prothrombin Time 12.7 12.2-14.7 SEC INR Comment 0.9 0.8-1.4 Activated Partial Thromboplast Time 28 24-35 SEC Sodium Level 137 135-145 MMOL/L Potassium Level 4.0 3.6-5.0 MMOL/L Chloride Level 105 98-107 MMOL/L Carbon Dioxide Level 23 21-32 MMOL/L Anion Gap 9 5-14 MMOL/L Blood Urea Nitrogen 15 7-18 MG/DL Creatinine 0.81 0.60-1.30 MG/DL Estimat Glomerular Filtration Rate 73 BUN/Creatinine Ratio 19 Glucose Level 106 H 70-105 MG/DL Calcium Level 9.8 8.5-10.1 MG/DL Corrected Calcium 9.6 8.5-10.1 MG/DL Magnesium Level 2.1 1.6-2.4 MG/DL Total Bilirubin 0.3 0.1-1.0 MG/DL Aspartate Amino Transf (AST/SGOT) 30 5-34 U/L Alanine Aminotransferase (ALT/SGPT) 27 0-55 U/L Alkaline Phosphatase 68 40-136 U/L Myoglobin 33.2 <58.0 NG/ML Troponin I < 0.30 <0.30 NG/ML Pro-B-Type Natriuretic Peptide 590.7 H <450.0 PG/ML Total Protein 7.1 6.4-8.2 GM/DL Albumin 4.2 3.2-4.5 GM/DL My Orders Orders - EZIO ESTRADA MD Cbc And Automated Diff (09/26/23 16:27) Magnesium (09/26/23 16:27) Chest 1 View Ap/Pa Only (09/26/23 16:27) Ekg Tracing (09/26/23 16:27) Comprehensive Metabolic Panel (09/26/23 16:) Myoglobin Serum (09/26/23 16:27) Protime With Inr (09/26/23 16:) Partial Thromboplastin Time (09/26/23 16:) Monitor-Rhythm Ecg Trace Only (09/26/23 16:27) Ed Iv/Invasive Line Start (09/26/23 16:27) Troponin I Fs (09/26/23 16:27) Probnp Fs (09/26/23 16:27) Nitroglycerin 0.4 Mg Btl 25's (Nitroglyc (09/26/23 16:45) Nitroglycerin 0.4 Mg Btl 25's (Nitroglyc (09/26/23 16:42) Troponin I Fs (09/26/23 17:47) Ekg Tracing (09/26/23 17:47) Medications Given in ED Current Medications Medications Dose Ordered Sig/Nafisa Route Start Time Stop Time Status Last Admin Dose Admin Nitroglycerin 0.4 mg UD PRN SL 09/26/23 16:45 09/26/23 17:06 0.4 MG Vital Signs/I&O 09/26/23 16:03 Temp 36.4 Pulse 64 Resp 18 B/P (MAP) 174/59 (97) O2 Delivery Room Air Progress Progress Note : Progress Note 1. ACS RULE OUT: - CXR: no acute findings - CBC/CMP: unremarkable - Troponin: undetectable x 2 - EKG x 2: non-ischemic - Pt took a full dose aspirin at home today - Sublingual Nitro given in ER x 2, which resolved the pain - Advised to follow up with Cardiology within 1 week. Call for appointment. - Follow up with PCP as well in 7 to 10 days -The patient was seen in the ED, and treated appropriately to presentation at a specific point in time. Patient is informed that there is a possibility that disease and illness can evolve and change in acuity rapidly or slowly after patient is discharged from the ER. Precautionary advice given to the patient for immediate return to ER if symptoms worsen or do not resolve, and to seek emergency care sooner rather than later. Pt also advised on the importance of PCP follow up and compliance with management and follow up plan with PCP and/or specialist, as this is part of the management plan. Pt verbally expressed understanding. Initial ECG Impression Date: Sep 26, 2023 Initial ECG Impression Time: 16:08 Initial ECG Rate: 61 Initial ECG Rhythm: Normal Sinus Initial ECG Intervals: Normal Initial ECG Impression: Nonspecific Changes, 1st Degree AV Block Initial ECG Comparisson: No Previous ECG Available EKG : EKG Time: 17:55 Rate: 55 Rhythm: S.Vinh ECG Comparisson: Unchanged ECG Impression: 1st Degree AV Block Diagnostic Imaging Diagonstic Imaging: Xray Plain Films/CT/US/NM/MRI: chest Comments [facility]. [place], [place] NAME: IGNACIA HORTON [facility] REC#: [id number] PT STATUS: REG ER : 1945 PHYSICIAN: EZIO ESTRADA MD ADMIT DATE: 09/26/23/ER FS Draft Date of Exam:09/26/23 CHEST 1 VIEW AP/PA ONLY EXAMINATION: Chest 1 view HISTORY: chest pain COMPARISON: 07/06/2022 FINDINGS: There is mild bibasilar atelectasis. Otherwise, the lungs are clear without edema or pneumonia. No pleural effusion or pneumothorax. Heart size is normal. IMPRESSION: 1. Mild atelectasis, otherwise clear lungs. Dictated on workstation # [id number] Dict: 09/26/23 1644 Trans: 09/26/23 1646 CV [id number] Interpreted by: SCOTT KOWALSKI MD Electronically signed by: Departure Impression Primary Impression: Ruled out for myocardial infarction Disposition: 01 HOME, SELF-CARE Condition: Improved Departure-Patient Inst. Referrals: ARIA NASH MD (PCP) Primary Care Physician OCTAVIANO SANTAMARIA MD Patient Instructions: Heart Healthy Diet, Chest Pain (DC) Add. Discharge Instructions: - Advised to follow up with Cardiology within 1 week. Call for appointment to Dr Santamaria's office. - Follow up with PCP as well in 7 to 10 days All discharge instructions reviewed with patient and/or family. Voiced understanding. Work/School Note: Work Release Form Date Seen in the Emergency Department: Sep 26, 2023 Return to Work: Sep 30, 2023 Restrictions: No Restrictions EZIO ESTRADA MD Sep 26, 2023 16:27
[2023-09-26] MEDS ORDERED: ASPIRIN 81 MG CHEWABLE TABLET PO ONE (16:30)
[2023-09-26 16:38] LABS: BASOPHILS # (AUTO) 0.1 10^3/uL (0.0-0.1); BASOPHILS % (AUTO) 1 % (0-10); EOSINOPHILS # (AUTO) 0.3 10^3/uL (0.0-0.3); EOSINOPHILS % (AUTO) 4 % (0-10); HEMATOCRIT 38 % (35-52); HEMOGLOBIN 12.2 g/dL (11.5-16.0); LYMPHOCYTES # (AUTO) 2.3 10^3/uL (1.0-4.0); LYMPHOCYTES % (AUTO) 34 % (12-44); MEAN CORPUSCULAR HEMOGLOBIN 30 pg (25-34); MEAN CORPUSCULAR HGB CONC 32 g/dL (32-36); MEAN CORPUSCULAR VOLUME 92 fL (80-99); MEAN PLATELET VOLUME 10.1 fL (9.0-12.2); MONOCYTES # (AUTO) 0.6 10^3/uL (0.0-1.0); MONOCYTES % (AUTO) 8 % (0-12); NEUTROPHILS # (AUTO) 3.6 10^3/uL (1.8-7.8); NEUTROPHILS % (AUTO) 53 % (42-75); PLATELET COUNT 223 10^3/uL (130-400); WHITE BLOOD COUNT 6.8 10^3/uL (4.3-11.0)
[2023-09-26] MEDS ORDERED: NITROGLYCERIN 0.4 MG SL TABLETS BTL 25'S SL ONE (16:42)
[2023-09-26] MEDS: NITROGLYCERIN 0.4 MG SL TABLETS BTL 25'S SL PRN ×2 (16:43→17:06)
[2023-09-26 16:46] LABS: PROTHROMBIN TIME PATIENT 12.7 SEC (12.2-14.7)
[2023-09-26 16:47] LABS: INR 0.9 (0.8-1.4)
--- NOTE | 2023-09-26 16:47 | Diagnostic Imaging Report ---
EXAMINATION: Chest 1 view HISTORY: chest pain COMPARISON: 07/06/2022 FINDINGS: There is mild bibasilar atelectasis. Otherwise, the lungs are clear without edema or pneumonia. No pleural effusion or pneumothorax. Heart size is normal. IMPRESSION: 1. Mild atelectasis, otherwise clear lungs. Dictated by: Dictated on workstation # [id number]
[2023-09-26 16:55] LABS: CHLORIDE 105 MMOL/L (98-107); SODIUM 137 MMOL/L (135-145)
[2023-09-26 16:56] LABS: ALANINE AMINOTRANSFERASE 27 U/L (0-55); ALBUMIN 4.2 GM/DL (3.2-4.5); ALKALINE PHOSPHATASE 68 U/L (40-136); BILIRUBIN,TOTAL 0.3 MG/DL (0.1-1.0); BUN/CREATININE RATIO 19; CALCIUM 9.8 MG/DL (8.5-10.1); CARBON DIOXIDE 23 MMOL/L (21-32); CREATININE SERUM 0.81 MG/DL (0.60-1.30); GFR ESTIMATED 73; GLUCOSE 106 MG/DL (70-105); MAGNESIUM 2.1 MG/DL (1.6-2.4); TOTAL PROTEIN 7.1 GM/DL (6.4-8.2)
[2023-09-26 18:27] VITALS: BP 107/59
== END 2023-09-26 18:25 | disposition home or self-care (01) ==
LOC: EDUNIT# 16:02 → ER FS 16:03
DX: Z03.89 Encounter for observation for other suspected diseases and conditions ruled out (principal)
CPT/HCPCS: 36415; 71045; 80053; 83735; 83874; 83880; 84484; 85025; 85610; 85730; 93005; 93041